=== PATIENT | female | born 1945 | race Caucasian/White ===

== ENCOUNTER 2023-12-27 15:37 | Emergency (ER) | payer MEDICARE, OTHER, SELFPAY ==
--- NOTE | ~2023-12-27 | CT_ITS ---
EXAMINATION: CT brain wo con DATE: 12/27/2023 15:56 INDICATION: Stroke. TECHNIQUE: Computed tomography (CT) of the head was performed without intravenous contrast. The mA wa s adjusted according to patient size. Iterative reconstruction technique was employed. The dose-lengt h product was 605.33 mGy-cm. COMPARISON: None FINDINGS: There are scattered areas of low attenuation in the cerebral white matter. There is chronic cystic encephalomalacia in the right parietal lobe deep white matter. There is no intracranial hemor rhage, acute infarction, or abnormal intracranial mass lesion. The ventricles are normal in size. The re are likely changes of left ocular lens replacement surgery. There is mild mucosal thickening in ri ght sphenoid sinus. The mastoid air cells are normal. There is a 14 mm mass with central calcificatio ns in the scalp on the right, could benign. IMPRESSION: 1. Chronic cystic encephalomalacia in the deep white matter in the right parietal lobe. 2. Moderate nonspecific cerebral white matter disease, which likely represents chronic small vessel i schemic disease. 3. I discussed this case with Dr. Reveles. Reviewed, dictated and finalized at location A. IMPRESSION: 1. Chronic cystic encephalomalacia in the deep white matter in the right pariet al lobe. 2. Moderate nonspecific cerebral white matter disease, which likely represents chronic small vessel ischemic disease. 3. I discussed this case with Dr. Reveles.
--- NOTE | ~2023-12-27 | CT_ITS ---
EXAMINATION: CTA brain carotid DATE: 12/27/2023 15:59 INDICATION: Right hemiparesis. TECHNIQUE: Computed tomographic angiography (CTA) of the head was performed with 100 mL Omnipaque-350 intravenous contrast. CTA of the neck was performed with intravenous contrast. Automated exposure co ntrol and iterative reconstruction technique were employed. The dose-length product was 1059.03 mGy-c m. Maximum intensity projection and volume rendered 3D-reconstructions were created by the technologi st on a separate workstation. COMPARISON: Head CT 12/27/2023 FINDINGS: HEAD CTA: There is chronic cystic encephalomalacia in the right parietal lobe deep white matter. Ther e are scattered areas of low attenuation in the cerebral white matter. There is no intracranial hemor rhage, acute infarction, or abnormal intracranial mass lesion. The ventricles are normal in size. The re is a 15 mm mass with calcifications in the scalp on the right, likely benign. There is mild mucosa l thickening in the paranasal sinuses. The mastoid air cells are normal. There are likely changes of ocular lens replacement surgeries. The vertebral arteries dominant. There is no significant stenosis of basilar artery or the posterior cerebral arteries. The posterior communicating arteries are normal . There is no significant stenosis of the intracranial internal carotid arteries or anterior cerebral arteries. Anterior communicating artery is normal. There is mild stenosis of proximal right middle c erebral artery. There is no aneurysm. There is severe stenosis of left internal carotid artery termin us and left left M1 middle cerebral artery. There is total occlusion of left M2 middle cerebral arter y. NECK CTA: There are no pathologically enlarged lymph nodes. There is no significant stenosis of the v ertebral arteries. There is plaque in the proximal internal carotid arteries. There is 0% stenosis of the proximal right internal carotid artery relative to normal distal artery lumen diameter (NASCET c riteria). There is 24% stenosis of the proximal left internal carotid artery relative to normal dista l artery lumen diameter. IMPRESSION: 1. Chronic cystic encephalomalacia in the right parietal lobe deep white matter. 2. Moderate nonspecific cerebral white matter disease, which likely represents chronic small vessel i schemic disease. 3. 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 Total occlusion of left M 2 middle cerebral artery. I called this result to Dr. Reveles. 4. 0% stenosis of the proximal right internal carotid artery relative to normal distal artery lumen d iameter (NASCET criteria). 5. 24% stenosis of the proximal left internal carotid artery relative to normal distal artery lumen d iameter. Reviewed, dictated and finalized at location A. IMPRESSION: 1. Chronic cystic encephalomalacia in the right parietal lobe deep white matter . 2. Moderate nonspecific cerebral white matter disease, which likely represents chronic small vessel ischemic disease. 3. 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 Tot al occlusion of left M2 middle cerebral artery. I called this result to Dr. Nura morales. 4. 0% stenosis of the proximal right internal carotid artery relative to normal distal artery lumen diameter (NASCET criteria). 5. 24% stenosis of the proximal left internal carotid artery relative to normal distal artery lumen diameter.
--- NOTE | 2023-12-27 15:43 | ECG_ITS ---
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 Measurements Intervals [place] Rate: 77 P: 24 DC: 234 QRS: -18 QRSD: 85 T: 43 QT: 393 QTc: 447 Interpretive Statements SINUS RHYTHM WITH FIRST DEGREE AV BLOCK VOLTAGE CRITERIA FOR LVH [MEETS CRITERIA IN ONE OF: R(aVL), S(V1), R(V5), R(V5/V6)+S(V1)] CONSIDER PREVIOUS POSSIBLE ANTERIOR MYOCARDIAL INFARCTION ABNORMAL ECG No previous ECG available for comparison Electronically Signed On 12-28-2023 07:58:42 CDT by Aamir Acevedo M.D.
--- NOTE | 2023-12-27 15:46 | ED.NEUROSD ---
HPI - Neuro Symptoms/Deficit General Chief Complaint: Suspected CVA Stated Complaint: possible CVA Time Seen by Provider: 12/27/23 15:43 History of Present Illness HPI Narrative: Patient is a 78-year-old female with history of hypertension, here with acute onset of confusion. Family states that her witnessed last known normal was around 1400. Family at bedside then noted sudden onset of confusion and word finding difficulties along with difficulty ambulating without assistance. They were unsure if she had any side weaker than the other. They did not notice facial droop. They do not believe she has had a prior stroke and they do not believe she is on blood thinners. History is somewhat limited due to the fact that patient is here visiting from [place], and has only been with current family members for the last 10 days and they are unsure of all of her medical history. Family revised last known normal to be 1200. Related Data Allergies Allergy/AdvReac Type Severity Reaction Status Date / Time No Known Allergies Allergy Unverified 03/13/13 12:27 Review of Systems Review of Systems: ROS unobtainable: Yes unobtainable due to mental status (word finding difficulties) Exam Narrative: GENERAL: Well-appearing, well-nourished, and in no acute distress. HEAD: Normocephalic, atraumatic. EYES: PERRLA and EOMI. ENT: Nares clear. Mucous membranes moist. NECK: Supple. CHEST: Clear to auscultation. No respiratory distress. HEART: Regular rate and rhythm. Normal peripheral pulses. ABDOMEN: Soft, nontender, nondistended. EXTREMITIES: Normal range of motion. No edema. SKIN: Warm, dry, no rash. NEURO: No facial droop, faint RUE drift, no lower extremity drift. Able to identify objects, difficulty with repeating sentences and phrases with fluency. No sensory deficits. Alert and oriented x2. PSYCH: Normal mood and affect. Course Course Emergency Course: Patient seen and evaluated at stroke stop. Difficulty with word finding and orientation question. To CT. LKN 1400. Patient hypertensive. Will order labetalol in anticipation of thrombolytics given she is within the TPA window. Received call from radiology, severe stenosis of left ICA and left M1. Total occlusion of left M2. Reevaluated. Patient's LKN was revised by family to 1200, patient outside of thrombolytic window at this time. Labetalol canceled to allow permissive hypertension. Repeat, more thorough neuro exam performed with patient in stretcher. NIH of 4 with a RUE drift. Family has no preference for stroke center, will discuss with [facility] stroke service. Spoke with Dr. Mckoy from [facility] stroke service. Given HTN and the fact that she is just at TPA/TKA cut off, not candidate for thrombolytics given benefits do not outweigh risks at this time per my discussion with stroke team. Family updated on all of this and is in agreement. Will do ED to ED transfer. Patient accepted as ED to ED transfer by Dr. Jones. Vital Signs Vital signs: Vital Signs Temperature 98.7 F 12/27/23 16:01 Pulse Rate 82 12/27/23 16:01 Respiratory Rate 16 12/27/23 16:01 Pulse Oximetry 100 12/27/23 16:01 Oxygen Delivery Room Air 12/27/23 16:01 Temperature 97.9 F 12/27/23 17:32 Pulse Rate 75 12/27/23 17:32 Respiratory Rate 16 12/27/23 17:32 Blood Pressure 174/106 H 12/27/23 17:32 Pulse Oximetry 98 12/27/23 17:32 Oxygen Delivery Room Air 12/27/23 16:01 MDM - Neuro Symptoms/Deficit Lab Data 12/27/23 16:01 12/27/23 16:01 Labs: Lab Results 12/27/23 12/27/23 12/27/23 Range/Units 15:43 15:54 16:01 WBC 16.0 H (4.5-10.0) K/mm3 RBC 5.07 (4.2-5.4) M/mm3 Hgb 15.5 H (12.0-15.0) g/dL Hct 46.7 (37.0-47.0) % MCV 92.1 (80-100) fl MCH 30.6 (26-34) pg MCHC 33.2 (32-36) g/dl RDW 14.0 (11.5-14.5) % Plt Count 201 (150-375) k/mm3 MPV 11.4 H (7.4-10.4) fl Immature Gran % (Auto)
[2023-12-27 15:47] LABS: Glucose Point of Care 112 mg/dl (65-105)
[2023-12-27 15:59] LABS: Estimated Glomerular Filt Rate 60
[2023-12-27 16:01] VITALS: PULSE 82; RESP 16; TEMP 37.1; O2SAT 100
[2023-12-27 16:08] VITALS: BP 185/127; PULSE 85; RESP 16; O2SAT 96
[2023-12-27 16:09] LABS: Basophils Percent Auto 0.3 % (0.2-1.2); Eosinophils Percent Auto 0.1 % (0-4.4); Hematocrit 46.7 % (37.0-47.0); Hemoglobin 15.5 g/dL (12.0-15.0); Immature Granulocyte Absolute 0.07 K/mm3 (0.00-0.031); Immature Granulocyte Percent A 0.4 % (0-0.5); Lymphocytes Absolute Auto 2.35 K/mm3 (0.9-3.2); Lymphocytes Percent Auto 14.7 % (18.3-44.2); Mean Corpuscular HGB Conc 33.2 g/dl (32-36); Mean Corpuscular Hemoglobin 30.6 pg (26-34); Mean Corpuscular Volume 92.1 fl (80-100); Mean Platelet Volume 11.4 fl (7.4-10.4); Monocytes Absolute Auto 1.1 K/mm3 (0.1-0.6); Monocytes Percent Auto 6.6 % (2.6-8.5); Neutrophils Absolute Auto 12.5 K/mm3 (1.3-6.7); Neutrophils Percent Auto 77.9 % (45.5-73.1); Platelet Count Result 201 k/mm3 (150-375); Red Blood Count 5.07 M/mm3 (4.2-5.4)
[2023-12-27 16:20] LABS: Alanine Aminotransferase 15 U/L (6-35); Albumin Level 4.4 g/dL (3.5-5.1); Alkaline Phosphatase 93 U/L (38-126); Anion Gap 6 mmol/L (4-12); Aspartate Amino Transferase 25 U/L (14-36); Bilirubin,Total 1.3 mg/dL (0.2-1.3); Blood Urea Nitrogen 22 mg/dL (7-17); Calcium 9.5 mg/dL (8.4-10.2); Carbon Dioxide 27 mmol/L (22-30); Chloride 105 mmol/L (98-107); Estimated CRCL calculation 58 ml/min; Estimated Glomerular Filt Rate > 60; Glucose 119 mg/dL (65-110); Partial Thromboplastin Time 28.2 Seconds (22.3-36.8); Potassium 3.9 mmol/L (3.4-5.0); Prothrombin Time 13.7 Seconds (11.1-14.7); Sodium 138 mmol/L (137-145)
[2023-12-27 16:31] LABS: Troponin I < 0.012 ng/mL (0.000-0.034)
[2023-12-27 16:52] VITALS: BP 165/92; PULSE 75; RESP 16; TEMP 36.6; O2SAT 97
[2023-12-27 17:32] VITALS: BP 174/106; PULSE 75; RESP 16; TEMP 36.6; O2SAT 98
== END 2023-12-27 17:34 | disposition short-term general hospital (02) ==
LOC: ANHED 16:27
PROVIDERS: Emergency Provider Student in an Organized Health Care Education/Training Program
DX: I63.512 Cerebral infarction due to unspecified occlusion or stenosis of left middle cerebral artery (principal); I10 Essential (primary) hypertension; I65.22 Occlusion and stenosis of left carotid artery; R90.82 White matter disease, unspecified; G93.89 Other specified disorders of brain
CPT/HCPCS: 36415; 70450; 70496; 70498; 80053; 82948; 84484; 85025; 85610; 85730; 93005; 99285; Q9967

== ENCOUNTER 2024-01-06 12:29 | Inpatient (IN) | payer MEDICARE, OTHER, SELFPAY ==
[2024-01-06] VITALS (7 sets, daily range): BP systolic 120–157; BP diastolic 61–74; PULSE 53–70; RESP 14–18; TEMP 36.4–36.9; O2SAT 94–98
--- NOTE | ~2024-01-06 | CT_ITS ---
EXAMINATION: CT brain wo con DATE: 01/06/2024 13:32 INDICATION: Altered mental status TECHNIQUE: Computed tomography (CT) of the head was performed without intravenous contrast. Sagittal and coronal reconstructions were performed. The mA was adjusted according to patient size. Iterative reconstruction technique was employed. The dose-length product was 681.00 mGy-cm. COMPARISON: head CT and CT angiogram dated 12/27/2023 FINDINGS: Increased prominence of the region of decreased white matter attenuation in the periventricular left frontal and parietal lobes likely representing evolution of a now subacute infarct in the left middle cerebral artery vascular distribution with total occlusion of the left M2 segment on the prior CT an giogram. Unchanged small lacunar infarct in the right parietal white matter. No acute intracranial he morrhage or abnormal extra axial fluid collection. There is additional unchanged moderate scattered w fan matter hypoattenuation consistent with chronic small vessel ischemic disease. Ventricles are no rmal and symmetric. No mass/mass effect. Changes of bilateral intraocular lens replacement. The orbit s and mastoid air cells are normal. Mild mucosal thickening the right maxillary sinus. Intracranial c alcified cerebral atherosclerosis is noted. IMPRESSION: 1. Interval evolution with decreasing attenuation of a region of likely subacute infarct in the left frontal and parietal lobes in the vascular distribution of the previous noted thrombosed left middle cerebral artery. 2. Additional unchanged moderate scattered white matter hypoattenuation consistent with chronic small vessel ischemic disease and additional chronic lacunar infarct in the right parietal white matter. Reviewed, dictated and finalized at location A. IMPRESSION: 1. Interval evolution with decreasing attenuation of a region of likely subacut e infarct in the left frontal and parietal lobes in the vascular distribution o f the previous noted thrombosed left middle cerebral artery. 2. Additional unchanged moderate scattered white matter hypoattenuation consist ent with chronic small vessel ischemic disease and additional chronic lacunar i nfarct in the right parietal white matter.
--- NOTE | ~2024-01-06 | XR_ITS ---
EXAMINATION: XR chest 1V DATE: 01/06/2024 13:34 INDICATION: Altered mental status. TECHNIQUE: A single frontal view of the chest was obtained. COMPARISON: Chest single view 03/13/2013 FINDINGS: There is mild atelectasis in left mid and lower lung zones. No pleural effusion or pneumoth orax. Cardiomegaly is noted. Surgical clips in the right upper quadrant are likely from cholecystecto my. IMPRESSION: 1. Mild atelectasis in left mid and lower lung zones. 2. Cardiomegaly. Reviewed, dictated and finalized at location E.
--- NOTE | 2024-01-06 13:08 | ECG_ITS ---
Test Date: 2024-01-06 13:38:57 Measurements Intervals [place] Rate: 54 P: 45 MS: 221 QRS: -30 QRSD: 103 T: 74 QT: 447 QTc: 425 Interpretive Statements SINUS BRADYCARDIA WITH FIRST DEGREE AV BLOCK POOR R-WAVE PROGRESSION, CONSIDER PREVIOUS ANTERIOR INFARCTION LEFT VENTRICULAR HYPERTROPHY AND ST-T CHANGE [VOLTAGE CRITERIA PLUS ST/T ABNORMALITY] ABNORMAL ECG Compared to ECG 12/27/2023 16:11:21 NO SIGNIFICANT DIFFERENCE Electronically Signed On 01-06-2024 15:33:03 CDT by Aamir Acevedo M.D.
--- NOTE | 2024-01-06 13:11 | ED.AMS ---
HPI - Altered Mental Status General Chief Complaint: Altered Mental Status Stated Complaint: ams Time Seen by Provider: 01/06/24 13:02 Source: family (daughter), EMS, RN notes reviewed and old records reviewed Mode of arrival: EMS Limitations: physical limitation (aphasia) and clinical condition History of Present Illness HPI narrative: This is a 78 year old female who presents from [facility] s/p left MCA ischemic CVA with residual right hemiparesis and aphasia for evaluation of altered mental status. Her daughter is at bedside and she states patient has been doing well during PT/OT. She states today patient was wanting to get to bed but staff requested for her stay up until lunch. Her daughter states she was sitting in her wheelchair when she became diaphoretic and stopped responding to her. She is still able to follow commands. She states she does not think patient loss consciousness. She had her stroke 10 days ago and she has been admitted to rehab for days. Related Data Home Medications Medication Instructions Recorded Confirmed apixaban 5 mg tablet 5 mg PO BID 01/02/24 01/06/24 aspirin 81 mg chewable tablet 81 mg PO DAILY 01/02/24 01/06/24 carvedilol 25 mg tablet 25 mg PO BID 01/02/24 01/06/24 hydrochlorothiazide 25 mg tablet 25 mg PO DAILY 01/02/24 01/06/24 levothyroxine 200 mcg tablet 200 mcg PO DAILY 01/02/24 01/06/24 rosuvastatin 20 mg tablet 20 mg PO DAILY 01/02/24 01/06/24 vitamin A 3,000 mcg (10,000 unit) 3,000 mcg PO DAILY 01/02/24 01/06/24 capsule amlodipine 10 mg PO DAILY 01/06/24 01/06/24 Allergies Allergy/AdvReac Type Severity Reaction Status Date / Time azithromycin AdvReac Nausea and Verified 01/06/24 17:10 Vomiting codeine AdvReac Nausea and Verified 01/06/24 17:10 Vomiting erythromycin base AdvReac Nausea and Verified 01/06/24 17:10 Vomiting Review of Systems Review of Systems: ROS unobtainable: Yes unobtainable due to medical condition PMFSH Past Medical History Medical History (Updated 01/06/24 @ 22:37 by Hue Hurtado MD) Acute ischemic left MCA stroke Aphasia as late effect of stroke DVT of lower extremity (deep venous thrombosis) Hemiparesis affecting right side as late effect of stroke HTN (hypertension) Hyperlipidemia Hypothyroidism Postablative hypothyroid Obstructive sleep apnea Vision disturbance following CVA (cerebrovascular accident) Social History Social History (Updated 01/06/24 @ 21:50 by Tanvi Obrien DO) Social History: The patient lives with her daughter in his [place] until recent visit to family members in the [place] She has lived in a simple for 2 years. She has 2 biologic daughters and 1 biologic son and multiple step children. Prior to her stroke she occasionally ambulated with a cane. She was otherwise independent activities of daily living. She smoked 1 pack of cigarettes per day from the time she was a teenager until approximately 30 years ago. She usually drink a glass of wine a night. She denies history of illicit substance use. Healthcare power of city attorney: Tanvi Medina (daughter) for Aamir Dubon Code status: Full code Smoking packs per day: 1 Smoking cigarettes per day: 20.0 Years smoked: 30 Smoking pack-years: 30.00 Smoking status: Former smoker Alcohol intake: current Drinks per week: 7 Alcohol use details: A glass of wine a night Substance use: never Substance use type: does not use Do You Feel Safe in your Home?: Yes Lack of Transportation: No Lack of Food: Never True Current Housing: I Have Housing Concerned About Future Housing: No Difficulty Paying Gas/Electric Bills: No Difficulty Paying for Meds: No Currently Unemployed: No Education: Don't Know Difficulty w/ Childcare or Family Care: No Occupation/Education: retired 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
[2024-01-06 14:14] LABS: Basophils Absolute Auto 0.1 K/mm3 (0.0-0.1); Basophils Percent Auto 0.4 % (0.2-1.2); Eosinophils Absolute Auto 0.1 K/mm3 (0-0.3); Eosinophils Percent Auto 0.3 % (0-4.4); Hemoglobin 16.8 g/dL (12.0-15.0); Immature Granulocyte Absolute 0.08 K/mm3 (0.00-0.031); Immature Granulocyte Percent A 0.5 % (0-0.5); Lymphocytes Absolute Auto 2.46 K/mm3 (0.9-3.2); Lymphocytes Percent Auto 15.1 % (18.3-44.2); Mean Corpuscular HGB Conc 33.6 g/dl (32-36); Mean Corpuscular Hemoglobin 30.6 pg (26-34); Mean Corpuscular Volume 91.1 fl (80-100); Mean Platelet Volume 12.2 fl (7.4-10.4); Monocytes Percent Auto 6.3 % (2.6-8.5); Neutrophils Absolute Auto 12.6 K/mm3 (1.3-6.7); Neutrophils Percent Auto 77.4 % (45.5-73.1); Platelet Count Result 312 k/mm3 (150-375); Red Blood Count 5.49 M/mm3 (4.2-5.4); Red Cell Distribution Width 12.8 % (11.5-14.5); White Blood Count 16.3 K/mm3 (4.5-10.0)
[2024-01-06 14:18] LABS: Appearance Urine Cloudy (Clear); Bacteria Urine 4+ /hpf; Bilirubin Urine Negative (Negative); Blood Urine Trace (Negative); Color Urine Dark Yellow (Yellow); Glucose Urine UA Negative (Negative); Ketones Urine Negative (Negative); Leukocyte Esterase Ur 1+ LEU/UL (Negative); Nitrate Urine Negative (Negative); Non Pathogenic Casts 0-2; Protein Urine Trace mg/dL (Negative); RBC Urine 0-2 /hpf (0-2); Squamous Epithelial Cell Urine None Seen /hpf (Few); pH Urine 5.5 (5.0-9.0)
[2024-01-06 14:28] LABS: INR 1.7; Prothrombin Time 20.8 Seconds (11.1-14.7)
[2024-01-06 14:29] LABS: Add Urine Microscopic? YES
[2024-01-06 14:30] LABS: Alanine Aminotransferase 26 U/L (6-35); Albumin Level 4.4 g/dL (3.5-5.1); Alkaline Phosphatase 99 U/L (38-126); Anion Gap 9 mmol/L (4-12); Aspartate Amino Transferase 31 U/L (14-36); Bilirubin,Total 0.8 mg/dL (0.2-1.3); Blood Urea Nitrogen 37 mg/dL (7-17); Calcium 9.8 mg/dL (8.4-10.2); Carbon Dioxide 31 mmol/L (22-30); Chloride 100 mmol/L (98-107); Estimated CRCL calculation 54 ml/min; Estimated Glomerular Filt Rate 60; Glucose 144 mg/dL (65-110); Potassium 2.7 mmol/L (3.4-5.0); Sodium 140 mmol/L (137-145)
[2024-01-06 14:34] LABS: Troponin I < 0.012 ng/mL (0.000-0.034)
[2024-01-06 14:58] LABS: Magnesium 2.1 mg/dL (1.6-2.3)
[2024-01-06] MEDS: POTASSIUM CHLORIDE INJ 40 MEQ in SODIUM CHLORIDE 0.9% IV 500 ML 130 MEQ IVPB (14:58)
--- NOTE | 2024-01-06 17:10 | ADMGEN ---
This patient, Carol Rosa, was admitted to 3 Med Surg Room 331-01. Patient/family oriented to hospital policies and general routines including ID bracelet, bed and alarms, visiting hours, pain management, procedures, bathroom and other care routines, personal items, smoking policy, room service/diet, and visiting hours. Information on how to activate the Rapid Response Team has been discussed. Patient/Family are encouraged to report perceived risks to care and to ask questions if they do not understand what they are told or what they should do.
--- NOTE | 2024-01-06 21:36 | PM.IMHP ---
H&P: HPI History of Present Illness Date/Time: 01/06/24 21:36 Chief Complaint: Drop in blood pressure, diaphoretic Narrative: 78-year-old female with a past medical history of obesity, obstructive sleep apnea, essential hypertension (historically uncontrolled), postablative hypothyroidism, hyperlipidemia and recent CVA who presented to from [facility] via EMS due to episode of drop in blood pressure diaphoresis and acute altered mental status. The patient's daughter who was at bedside provides majority of history is the patient is almost completely aphasic following her stroke. The patient was living in [facility] with her daughter for the last 2 years but recently came to the [place] visit her other children. While here she had an acute CVA and was brought to [facility] on 12/27/2023 for acute CVA with CTA chronic cystic encephalomalacia of the right parietal lobe (no known prior CVA history) demonstrate severe stenosis of the left internal carotid and left M1 with total occlusion left M2. The patient was outside the thrombolytic window. The patient was transferred to [facility] where MRI demonstrated low volume right watershed infarcts. She was started on Eliquis and had a KATHY but results are not available for review. The patient at was discharged to acute rehab on 01/01/2024. She has been placed on a minimally thin liquid and pureed diet level 4. The patient had done well with both physical therapy and speech therapy today. She told staff that she did not feel well and wanted to lie down. They asked her to stay up in her wheelchair tell after lunch. Than a couple of minutes later patient acutely became diaphoretic and viera in color. Her daughter reports that she was sweating so bad that it was dripping off of her ear lobes. She was not responding. The daughter reports that her blood pressure dropped from her usual of 150s to 160s down to 90 systolic. They laid the patient down and then on repeat evaluation she was back to her baseline. Patient did not actually lose consciousness. Through wrist areas of yes and no questions patient answered with head nods and occasional yes or no responses. The patient stated she denies any chest pain palpitations difficulty breathing, nausea or vomiting. Both the patient and her daughter do not know when her last bowel movement was until today. After she had arrived to the medical floor she did have a small amount of stool. She denies any abdominal pain. She has persistent hemiplegia of the right upper extremity but improved movement from the hip and thigh of the right lower extremity but still has problems with foot drop. The patient's daughter reports the patient has frequent urinary tract infections patient denies any dysuria or changes in urinary frequency. The patient's daughter reports the patient's urine is been quite dark in color and she is concerned her mother may be dehydrated. Patient does have a pure wick catheter in place. Labs in the ER did demonstrate leukocytosis, polycythemia increased from baseline, significant hypokalemia and UA with 4+ bacteria 6-10 wbc's and 1+ esterase with cloudy appearance to the urine. The patient has been afebrile since presentation. CT of the brain demonstrated interval evolution with decreasing continuation of region likely subacute infarct left frontal and parietal lobes in the vascular distribution of the left middle cerebral artery. Additional unchanged moderate scattered white matter hypoattenuation consistent with chronic small-vessel ischemic disease an additional chronic lacunar infarct in the right parietal white matter. Chest x-ray demonstrated mild atelectasis of the left mid and lower lung zones as well as cardiomegaly. In the ER the patient received 40 mEq of IV potassium and was admitted for observation. Review of Systems Review of Systems: Review of systems limited due to expressive aphasia from recent stroke. [facility] Past Medical His
[2024-01-06] MEDS: KCL 20 MEQ/0.45% NS 1,000 ML 125 ML IV CONT (22:44)
[2024-01-06] MEDS: carvediloL 25 MG TABLET PO (23:15)
[2024-01-07] VITALS (11 sets, daily range): BP systolic 140–144; BP diastolic 75–78; PULSE 55–84; RESP 18; TEMP 36.8–37; O2SAT 95–98
[2024-01-07] MEDS: LEVOTHYROXINE SODIUM 100 MCG TABLET 200 MCG PO (05:04)
[2024-01-07 06:31] LABS: Basophils Absolute Auto 0.1 K/mm3 (0.0-0.1); Basophils Percent Auto 0.3 % (0.2-1.2); Eosinophils Absolute Auto 0.1 K/mm3 (0-0.3); Eosinophils Percent Auto 0.3 % (0-4.4); Hematocrit 46.3 % (37.0-47.0); Hemoglobin 15.2 g/dL (12.0-15.0); Immature Granulocyte Absolute 0.07 K/mm3 (0.00-0.031); Immature Granulocyte Percent A 0.4 % (0-0.5); Lymphocytes Absolute Auto 3.46 K/mm3 (0.9-3.2); Lymphocytes Percent Auto 19.1 % (18.3-44.2); Mean Corpuscular HGB Conc 32.8 g/dl (32-36); Mean Corpuscular Hemoglobin 30.2 pg (26-34); Mean Corpuscular Volume 91.9 fl (80-100); Mean Platelet Volume 11.7 fl (7.4-10.4); Monocytes Absolute Auto 1.2 K/mm3 (0.1-0.6); Monocytes Percent Auto 6.6 % (2.6-8.5); Neutrophils Absolute Auto 13.3 K/mm3 (1.3-6.7); Neutrophils Percent Auto 73.3 % (45.5-73.1); Platelet Count Result 304 k/mm3 (150-375); Red Blood Count 5.04 M/mm3 (4.2-5.4); White Blood Count 18.1 K/mm3 (4.5-10.0)
[2024-01-07 06:44] LABS: Alanine Aminotransferase 21 U/L (6-35); Albumin Level 3.9 g/dL (3.5-5.1); Alkaline Phosphatase 91 U/L (38-126); Anion Gap 9 mmol/L (4-12); Aspartate Amino Transferase 27 U/L (14-36); Bilirubin,Total 0.9 mg/dL (0.2-1.3); Blood Urea Nitrogen 32 mg/dL (7-17); Calcium 8.8 mg/dL (8.4-10.2); Carbon Dioxide 24 mmol/L (22-30); Chloride 105 mmol/L (98-107); Estimated CRCL calculation 68 ml/min; Estimated Glomerular Filt Rate > 60; Glucose 118 mg/dL (65-110); Potassium 3.4 mmol/L (3.4-5.0); Sodium 138 mmol/L (137-145)
[2024-01-07] MEDS: KCL 20 MEQ/0.45% NS 1,000 ML 125 ML IV CONT ×2 (07:01→17:06)
--- NOTE | 2024-01-07 09:14 | PM.IMPN ---
Progress Note: A&P Assessment and Plan (1) Acute hypokalemia: Code(s): E87.6 - Hypokalemia Status: Acute Assessment and Plan: Potassium 2.7 on admission -K+ 3.4, magnesium 2.0 today -Give PO K+ 40 meq once today -On tele (2) Vasovagal near syncope: Code(s): R55 - Syncope and collapse Status: Acute Assessment and Plan: Orthostatic vital signs to be collected when patient works with therapy Received 1.5 L of fluids---IVF ordered to stop this afternoon (3) Leukocytosis: Code(s): D72.829 - Elevated white blood cell count, unspecified Status: Acute Assessment and Plan: Appears she had elevated white count at [facility] which was thought to be reactive -white count is increased after IV fluid hydration -u/a shows cloudy urine +1 leuks, wbc 6-10, +4 bacteria -will go ahead and treat with Rocephin pending culture results. (4) DVT of lower extremity (deep venous thrombosis): Qualifiers: Affected thrombotic vein of extremity: unspecified vein of extremity Chronicity: unspecified Laterality: unspecified laterality Qualified Code(s): I82.409 - Acute embolism and thrombosis of unspecified deep veins of unspecified lower extremity Code(s): I82.409 - Acute embolism and thrombosis of unspecified deep veins of unspecified lower extremity Status: Acute Assessment and Plan: Recent DVT found on admission to [facility] -on Eliquis (5) Hemiparesis affecting right side as late effect of stroke: Code(s): I69.351 - Hemiplegia and hemiparesis following cerebral infarction affecting right dominant side Status: Acute Assessment and Plan: Recent stroke with residual right hemiparesis and expressive aphasia. On ASA 81 mg, Crestor 20 mg and Eliquis 5 mg PT/OT consults placed ST consulted Anticipate return to [facility] (6) HTN (hypertension): Qualifiers: Hypertension type: primary hypertension Qualified Code(s): I10 - Essential (primary) hypertension Code(s): I10 - Essential (primary) hypertension Status: Acute Assessment and Plan: Blood pressure was reported to be low at [facility] but no low blood pressure documented. Blood pressures seem to range systolic 140-160's. She is on amlodipine 10 mg daily, HCTZ, Coreg normally Continue with amlodipine and Coreg. Holding HCTZ currently. (7) Hypothyroidism: Qualifiers: Hypothyroidism type: postablative Qualified Code(s): E89.0 - Postprocedural hypothyroidism Code(s): E03.9 - Hypothyroidism, unspecified Status: Acute Assessment and Plan: Continue levothyroxine Subjective Date/time seen: 01/07/24 09:14 Interval history: 78-year-old female with a past medical history of obesity, obstructive sleep apnea, essential hypertension (historically uncontrolled), postablative hypothyroidism, hyperlipidemia and recent CVA who presented to [facility] acute [facility] via EMS due to episode of drop in blood pressure diaphoresis and acute altered mental status. Patient had a stroke 10 days ago and was transferred to [facility]. The daughter is unsure of what interventions were done at [facility]--records are supposed to be requested. The patient has considerable expressive aphasia but can answer with yes and no and nods her head appropriately. She has a flaccid right arm and some movement of her right leg. 01/06: Patient is seen resting in bed with her daughter at the bedside. She is drowsy but her daughter states that she just had lunch. The patient is doing better than when she first came to the hospital. I discussed current plan of care with treatment for UTI and awaiting urine. It does not appear that blood cultures were drawn on admission. The daughter is asking if we can stop thickening her liquids because they were not thickening them at the [facility]. Review of Systems Review of Systems: Review of systems limited due to expressive aphasia from recent stroke. E
[2024-01-07] MEDS: carvediloL 25 MG TABLET PO ×2 (09:39→20:22)
[2024-01-07] MEDS: cefTRIAXone 2 GM/NS 100 ML 2 GM/100 ML BAG IVPB (09:39)
[2024-01-07] MEDS: amLODIPine BESYLATE 5 MG TABLET 10 MG PO (09:40)
[2024-01-07] MEDS: ASPIRIN 81 MG CHEWABLE TABLET PO (09:40)
[2024-01-07] MEDS: APIXABAN 5 MG TABLET PO ×2 (09:40→20:22)
[2024-01-07] MEDS: ROSUVASTATIN 20 MG TABLET PO (09:40)
--- NOTE | 2024-01-07 14:38 | PC.NURSE ---
Addendum entered by Lady Cabrales RN 01/07/24 14:41: Family signed the request for medical records at 1305. Original Note: Patient resting in bed with family present during morning assessment. Patient calm and cooperative. She communicates mainly with nods but was able to articulate several words during medication administration. Per family, patient states her R upper arm has begun hurting recently. Patient took pills crushed in applesauce with no difficulties. Patient is not a fan of thickened liquids.
[2024-01-07] MEDS: POTASSIUM CHLORIDE 20 MEQ PACKET (FOR LIQUID) 40 MEQ PO (17:05)
[2024-01-07] MEDS: DOCUSATE SODIUM 100 MG CAPSULE PO (20:22)
[2024-01-08] VITALS (11 sets, daily range): BP systolic 126–169; BP diastolic 51–77; PULSE 54–65; RESP 16–20; TEMP 36.3–36.7; O2SAT 97–99; BMI 10.0
[2024-01-08 00:54] LABS: IFOB Positive Control Positive; Immunochemical Fecal Occult Bl Positive (N)
[2024-01-08] MEDS: LEVOTHYROXINE SODIUM 100 MCG TABLET 200 MCG PO (05:27)
[2024-01-08 06:22] LABS: Basophils Absolute Auto 0.1 K/mm3 (0.0-0.1); Basophils Percent Auto 0.3 % (0.2-1.2); Eosinophils Absolute Auto 0.1 K/mm3 (0-0.3); Eosinophils Percent Auto 0.4 % (0-4.4); Hematocrit 43.9 % (37.0-47.0); Hemoglobin 14.4 g/dL (12.0-15.0); Immature Granulocyte Percent A 0.6 % (0-0.5); Lymphocytes Absolute Auto 3.55 K/mm3 (0.9-3.2); Lymphocytes Percent Auto 19.9 % (18.3-44.2); Mean Corpuscular HGB Conc 32.8 g/dl (32-36); Mean Corpuscular Volume 91.5 fl (80-100); Mean Platelet Volume 11.5 fl (7.4-10.4); Monocytes Percent Auto 5.5 % (2.6-8.5); Neutrophils Absolute Auto 13.1 K/mm3 (1.3-6.7); Neutrophils Percent Auto 73.3 % (45.5-73.1); Platelet Count Result 285 k/mm3 (150-375); Red Cell Distribution Width 12.9 % (11.5-14.5); White Blood Count 17.9 K/mm3 (4.5-10.0)
[2024-01-08 06:36] LABS: Alanine Aminotransferase 22 U/L (6-35); Albumin Level 3.6 g/dL (3.5-5.1); Alkaline Phosphatase 89 U/L (38-126); Anion Gap 6 mmol/L (4-12); Aspartate Amino Transferase 35 U/L (14-36); Bilirubin,Total 0.8 mg/dL (0.2-1.3); Blood Urea Nitrogen 23 mg/dL (7-17); Calcium 8.7 mg/dL (8.4-10.2); Carbon Dioxide 24 mmol/L (22-30); Chloride 107 mmol/L (98-107); Estimated CRCL calculation 68 ml/min; Estimated Glomerular Filt Rate > 60; Glucose 107 mg/dL (65-110); Potassium 3.9 mmol/L (3.4-5.0); Sodium 137 mmol/L (137-145)
[2024-01-08] MEDS: KCL 20 MEQ/0.45% NS 1,000 ML 125 ML IV CONT ×2 (06:46→16:15)
[2024-01-08] MEDS: cefTRIAXone 2 GM/NS 100 ML 2 GM/100 ML BAG IVPB (08:15)
[2024-01-08] MEDS: amLODIPine BESYLATE 5 MG TABLET 10 MG PO (08:15)
[2024-01-08] MEDS: ASPIRIN 81 MG CHEWABLE TABLET PO (08:15)
[2024-01-08] MEDS: DOCUSATE SODIUM 100 MG CAPSULE PO ×2 (08:15→20:48)
[2024-01-08] MEDS: ROSUVASTATIN 20 MG TABLET PO (08:15)
[2024-01-08] MEDS: APIXABAN 5 MG TABLET PO ×2 (08:16→20:48)
[2024-01-08] MEDS: carvediloL 25 MG TABLET PO ×2 (08:16→20:47)
--- NOTE | 2024-01-08 08:57 | PM.IMPN ---
Progress Note: A&P Assessment and Plan (1) Acute hypokalemia: Code(s): E87.6 - Hypokalemia Status: Acute Assessment and Plan: Potassium 2.7 on admission -K+ 3.4, magnesium 2.0 today -Give PO K+ 40 meq once today -On tele 01/07- K 3.0 today- monitor (2) Vasovagal near syncope: Code(s): R55 - Syncope and collapse Status: Acute Assessment and Plan: Orthostatic vital signs to be collected when patient works with therapy Received 1.5 L of fluids---IVF ordered to stop this afternoon (3) Leukocytosis: Code(s): D72.829 - Elevated white blood cell count, unspecified Status: Acute Assessment and Plan: Appears she had elevated white count at [facility] which was thought to be reactive -white count is increased after IV fluid hydration -u/a shows cloudy urine +1 leuks, wbc 6-10, +4 bacteria -will go ahead and treat with Rocephin pending culture results. 01/07- 17.9 today (18.1) (4) DVT of lower extremity (deep venous thrombosis): Qualifiers: Affected thrombotic vein of extremity: unspecified vein of extremity Chronicity: unspecified Laterality: unspecified laterality Qualified Code(s): I82.409 - Acute embolism and thrombosis of unspecified deep veins of unspecified lower extremity Code(s): I82.409 - Acute embolism and thrombosis of unspecified deep veins of unspecified lower extremity Status: Acute Assessment and Plan: Recent DVT found on admission to [facility] -on Eliquis -continue (5) Hemiparesis affecting right side as late effect of stroke: Code(s): I69.351 - Hemiplegia and hemiparesis following cerebral infarction affecting right dominant side Status: Acute Assessment and Plan: Recent stroke with residual right hemiparesis and expressive aphasia. On ASA 81 mg, Crestor 20 mg and Eliquis 5 mg PT/OT consults placed ST consulted Anticipate return to [facility] (6) HTN (hypertension): Qualifiers: Hypertension type: primary hypertension Qualified Code(s): I10 - Essential (primary) hypertension Code(s): I10 - Essential (primary) hypertension Status: Acute Assessment and Plan: Blood pressure was reported to be low at [facility] but no low blood pressure documented. Blood pressures seem to range systolic 140-160's. She is on amlodipine 10 mg daily, HCTZ, Coreg normally Continue with amlodipine and Coreg. Holding HCTZ currently. (7) Hypothyroidism: Qualifiers: Hypothyroidism type: postablative Qualified Code(s): E89.0 - Postprocedural hypothyroidism Code(s): E03.9 - Hypothyroidism, unspecified Status: Acute Assessment and Plan: Continue levothyroxine (8) UTI (urinary tract infection): Code(s): N39.0 - Urinary tract infection, site not specified Status: Acute Assessment and Plan: - on ceftriaxone IV-started on 01/06 - culture is growing E coli-sensitivities pending- will continue IV antibiotics for now Time Spent With Patient Time with patient: 25 - 35 minutes Subjective Date/time seen: 01/08/24 08:57 Interval history: 78-year-old female with a past medical history of obesity, obstructive sleep apnea, essential hypertension (historically uncontrolled), postablative hypothyroidism, hyperlipidemia and recent CVA who presented to [facility] acute [facility] via EMS due to episode of drop in blood pressure diaphoresis and acute altered mental status. Patient had a stroke 10 days ago and was transferred to [facility]. The daughter is unsure of what interventions were done at [facility]--records are supposed to be requested. The patient has considerable expressive aphasia but can answer with yes and no and nods her head appropriately. She has a flaccid right arm and some movement of her right leg. 01/06: Patient is seen resting in bed with her daughter at the bedside. She is drowsy but her daughter states that she just had lunch. The patient is doing better than when she
--- NOTE | 2024-01-08 15:01 | PCSTNOTE ---
Please refer to the Bedside Swallow Evaluation in the EMR. Please note, silent aspiration cannot be ruled out at bedside.
[2024-01-09] VITALS (13 sets, daily range): BP systolic 129–148; BP diastolic 55–77; PULSE 56–84; RESP 14–20; TEMP 35.8–37.4; O2SAT 95–100; BMI 10.0
[2024-01-09] MEDS: KCL 20 MEQ/0.45% NS 1,000 ML 125 ML IV CONT (00:50)
[2024-01-09] MEDS: LEVOTHYROXINE SODIUM 100 MCG TABLET 200 MCG PO (06:08)
[2024-01-09 07:15] LABS: Basophils Absolute Auto 0.1 K/mm3 (0.0-0.1); Basophils Percent Auto 0.4 % (0.2-1.2); Eosinophils Absolute Auto 0.2 K/mm3 (0-0.3); Eosinophils Percent Auto 1.8 % (0-4.4); Hematocrit 40.2 % (37.0-47.0); Hemoglobin 13.3 g/dL (12.0-15.0); Immature Granulocyte Absolute 0.05 K/mm3 (0.00-0.031); Immature Granulocyte Percent A 0.4 % (0-0.5); Lymphocytes Absolute Auto 3.22 K/mm3 (0.9-3.2); Lymphocytes Percent Auto 27.4 % (18.3-44.2); Mean Corpuscular HGB Conc 33.1 g/dl (32-36); Mean Corpuscular Hemoglobin 30.6 pg (26-34); Mean Corpuscular Volume 92.6 fl (80-100); Monocytes Absolute Auto 0.8 K/mm3 (0.1-0.6); Monocytes Percent Auto 6.7 % (2.6-8.5); Neutrophils Absolute Auto 7.5 K/mm3 (1.3-6.7); Neutrophils Percent Auto 63.3 % (45.5-73.1); Platelet Count Result 241 k/mm3 (150-375); Red Blood Count 4.34 M/mm3 (4.2-5.4); Red Cell Distribution Width 13.1 % (11.5-14.5); White Blood Count 11.8 K/mm3 (4.5-10.0)
[2024-01-09 07:28] LABS: Alanine Aminotransferase 20 U/L (6-35); Albumin Level 3.4 g/dL (3.5-5.1); Alkaline Phosphatase 81 U/L (38-126); Anion Gap 7 mmol/L (4-12); Aspartate Amino Transferase 31 U/L (14-36); Bilirubin,Total 0.7 mg/dL (0.2-1.3); Blood Urea Nitrogen 18 mg/dL (7-17); Calcium 8.4 mg/dL (8.4-10.2); Carbon Dioxide 23 mmol/L (22-30); Chloride 108 mmol/L (98-107); Estimated CRCL calculation 60 ml/min; Estimated Glomerular Filt Rate > 60; Glucose 78 mg/dL (65-110); Potassium 3.7 mmol/L (3.4-5.0); Sodium 138 mmol/L (137-145)
--- NOTE | 2024-01-09 08:02 | PM.IMPN ---
Progress Note: A&P Assessment and Plan (1) Acute hypokalemia: Code(s): E87.6 - Hypokalemia Status: Acute Assessment and Plan: Potassium 2.7 on admission -K+ 3.4, magnesium 2.0 today -Give PO K+ 40 meq once today -On tele 01/07- K 3.0 today- monitor (2) Vasovagal near syncope: Code(s): R55 - Syncope and collapse Status: Acute Assessment and Plan: Orthostatic vital signs to be collected when patient works with therapy Received 1.5 L of fluids---IVF ordered to stop this afternoon (3) Leukocytosis: Code(s): D72.829 - Elevated white blood cell count, unspecified Status: Acute Assessment and Plan: Appears she had elevated white count at [facility] which was thought to be reactive -white count is increased after IV fluid hydration -u/a shows cloudy urine +1 leuks, wbc 6-10, +4 bacteria -will go ahead and treat with Rocephin pending culture results. 01/07- 17.9 today (18.1) (4) DVT of lower extremity (deep venous thrombosis): Qualifiers: Affected thrombotic vein of extremity: unspecified vein of extremity Chronicity: unspecified Laterality: unspecified laterality Qualified Code(s): I82.409 - Acute embolism and thrombosis of unspecified deep veins of unspecified lower extremity Code(s): I82.409 - Acute embolism and thrombosis of unspecified deep veins of unspecified lower extremity Status: Acute Assessment and Plan: Recent DVT found on admission to [facility] -on Eliquis -continue (5) Hemiparesis affecting right side as late effect of stroke: Code(s): I69.351 - Hemiplegia and hemiparesis following cerebral infarction affecting right dominant side Status: Acute Assessment and Plan: Recent stroke with residual right hemiparesis and expressive aphasia. On ASA 81 mg, Crestor 20 mg and Eliquis 5 mg PT/OT consults placed ST consulted Anticipate return to [facility] (6) HTN (hypertension): Qualifiers: Hypertension type: primary hypertension Qualified Code(s): I10 - Essential (primary) hypertension Code(s): I10 - Essential (primary) hypertension Status: Acute Assessment and Plan: Blood pressure was reported to be low at [facility] but no low blood pressure documented. Blood pressures seem to range systolic 140-160's. She is on amlodipine 10 mg daily, HCTZ, Coreg normally Continue with amlodipine and Coreg. Holding HCTZ currently. (7) Hypothyroidism: Qualifiers: Hypothyroidism type: postablative Qualified Code(s): E89.0 - Postprocedural hypothyroidism Code(s): E03.9 - Hypothyroidism, unspecified Status: Acute Assessment and Plan: Continue levothyroxine (8) UTI (urinary tract infection): Code(s): N39.0 - Urinary tract infection, site not specified Status: Acute Assessment and Plan: - on ceftriaxone IV-started on 01/06 - culture is growing E coli-sensitivities pending- will continue IV antibiotics for now Time Spent With Patient Time with patient: 25 - 35 minutes Subjective Date/time seen: 01/09/24 08:02 Interval history: 78-year-old female with a past medical history of obesity, obstructive sleep apnea, essential hypertension (historically uncontrolled), postablative hypothyroidism, hyperlipidemia and recent CVA who presented to [facility] acute [facility] via EMS due to episode of drop in blood pressure diaphoresis and acute altered mental status. Patient had a stroke 10 days ago and was transferred to [facility]. The daughter is unsure of what interventions were done at [facility]--records are supposed to be requested. The patient has considerable expressive aphasia but can answer with yes and no and nods her head appropriately. She has a flaccid right arm and some movement of her right leg. 01/06: Patient is seen resting in bed with her daughter at the bedside. She is drowsy but her daughter states that she just had lunch. The patient is doing better than when she
[2024-01-09] MEDS: APIXABAN 5 MG TABLET PO ×2 (08:50→20:26)
[2024-01-09] MEDS: DOCUSATE SODIUM 100 MG CAPSULE PO (08:50)
[2024-01-09] MEDS: carvediloL 25 MG TABLET PO ×2 (08:50→20:25)
[2024-01-09] MEDS: amLODIPine BESYLATE 5 MG TABLET 10 MG PO (08:50)
[2024-01-09] MEDS: ASPIRIN 81 MG CHEWABLE TABLET PO (08:50)
[2024-01-09] MEDS: cefTRIAXone 2 GM/NS 100 ML 2 GM/100 ML BAG IVPB (08:50)
[2024-01-09] MEDS: ROSUVASTATIN 20 MG TABLET PO (08:50)
--- NOTE | 2024-01-09 10:41 | ECG_ITS ---
Test Date: 2024-01-09 11:05:27 Measurements Intervals [place] Rate: 55 P: 23 [place]: 232 QRS: -22 QRSD: 88 T: 30 QT: 463 QTc: 444 Interpretive Statements SINUS BRADYCARDIA WITH SINUS ARRHYTHMIA WITH FIRST DEGREE AV BLOCK VOLTAGE CRITERIA FOR LVH [MEETS CRITERIA IN ONE OF: R(aVL), S(V1), R(V5), R(V5/V6)+S(V1)] POSSIBLE ANTERIOR MYOCARDIAL INFARCTION , OF INDETERMINATE AGE [30 ms Q WAVE IN V3/V4, OR R < 0.2 mV IN V4] INFERIOR MYOCARDIAL INFARCTION , OF INDETERMINATE AGE [40+ ms Q WAVE AND/OR ST/T ABNORMALITY IN II/aVF] ABNORMAL ECG Compared to ECG 01/06/2024 13:38:57 ST (T wave) deviation no longer present Myocardial infarct finding still present Electronically Signed On 01-09-2024 15:58:13 CDT by Dillan Griffith M.D.
--- NOTE | 2024-01-09 11:55 | PM.DS ---
DS: Admitting Diagnosis Discharge Date 01/08 Admitting Diagnosis stroke DS: Discharge Diagnosis Discharge Diagnosis (1) Acute hypokalemia: Code(s): E87.6 - Hypokalemia Status: Acute Assessment and Plan: Potassium 2.7 on admission -K+ 3.4, magnesium 2.0 today -Give PO K+ 40 meq once today -On tele 01/07- K 3.0 today- monitor (2) Vasovagal near syncope: Code(s): R55 - Syncope and collapse Status: Acute Assessment and Plan: Orthostatic vital signs to be collected when patient works with therapy Received 1.5 L of fluids---IVF ordered to stop this afternoon (3) Leukocytosis: Code(s): D72.829 - Elevated white blood cell count, unspecified Status: Acute Assessment and Plan: Appears she had elevated white count at [facility] which was thought to be reactive -white count is increased after IV fluid hydration -u/a shows cloudy urine +1 leuks, wbc 6-10, +4 bacteria -will go ahead and treat with Rocephin pending culture results. 01/07- 17.9 today (18.1) (4) DVT of lower extremity (deep venous thrombosis): Qualifiers: Affected thrombotic vein of extremity: unspecified vein of extremity Chronicity: unspecified Laterality: unspecified laterality Qualified Code(s): I82.409 - Acute embolism and thrombosis of unspecified deep veins of unspecified lower extremity Code(s): I82.409 - Acute embolism and thrombosis of unspecified deep veins of unspecified lower extremity Status: Acute Assessment and Plan: Recent DVT found on admission to [facility] -on Eliquis -continue (5) Hemiparesis affecting right side as late effect of stroke: Code(s): I69.351 - Hemiplegia and hemiparesis following cerebral infarction affecting right dominant side Status: Acute Assessment and Plan: Recent stroke with residual right hemiparesis and expressive aphasia. On ASA 81 mg, Crestor 20 mg and Eliquis 5 mg PT/OT consults placed ST consulted Anticipate return to [facility] (6) HTN (hypertension): Qualifiers: Hypertension type: primary hypertension Qualified Code(s): I10 - Essential (primary) hypertension Code(s): I10 - Essential (primary) hypertension Status: Acute Assessment and Plan: Blood pressure was reported to be low at [facility] but no low blood pressure documented. Blood pressures seem to range systolic 140-160's. She is on amlodipine 10 mg daily, HCTZ, Coreg normally Continue with amlodipine and Coreg. Holding HCTZ currently. (7) Hypothyroidism: Qualifiers: Hypothyroidism type: postablative Qualified Code(s): E89.0 - Postprocedural hypothyroidism Code(s): E03.9 - Hypothyroidism, unspecified Status: Acute Assessment and Plan: Continue levothyroxine (8) UTI (urinary tract infection): Code(s): N39.0 - Urinary tract infection, site not specified Status: Acute Assessment and Plan: - on ceftriaxone IV-started on 01/06 - culture is growing E coli-sensitivities pending- will continue IV antibiotics for now DS: Summary Hospital Course Hospital Course: 78-year-old female with a past medical history of obesity, obstructive sleep apnea, essential hypertension (historically uncontrolled), postablative hypothyroidism, hyperlipidemia and recent CVA who presented to [facility] acute [facility]hab via EMS due to episode of drop in blood pressure diaphoresis and acute altered mental status. Patient had a stroke 10 days ago and was transferred to [facility]. The daughter is unsure of what interventions were done at [facility]--records are supposed to be requested. The patient has considerable expressive aphasia but can answer with yes and no and nods her head appropriately. She has a flaccid right arm and some movement of her right leg. 01/06: Patient is seen resting in bed with her daughter at the bedside. She is drowsy but her daughter states that she just had lunch. The patient is doing better than when s
[2024-01-10] VITALS: PULSE 59
[2024-01-10 04:00] VITALS: PULSE 69
[2024-01-10] MEDS: LEVOTHYROXINE SODIUM 100 MCG TABLET 200 MCG PO (05:36)
[2024-01-10 05:59] VITALS: BP 139/59; PULSE 68; RESP 12; TEMP 36.6; O2SAT 94
[2024-01-10 06:50] LABS: Basophils Absolute Auto 0.1 K/mm3 (0.0-0.1); Basophils Percent Auto 0.4 % (0.2-1.2); Eosinophils Absolute Auto 0.1 K/mm3 (0-0.3); Eosinophils Percent Auto 0.9 % (0-4.4); Hemoglobin 13.3 g/dL (12.0-15.0); Immature Granulocyte Absolute 0.05 K/mm3 (0.00-0.031); Immature Granulocyte Percent A 0.4 % (0-0.5); Lymphocytes Absolute Auto 3.33 K/mm3 (0.9-3.2); Mean Corpuscular HGB Conc 33.3 g/dl (32-36); Mean Corpuscular Hemoglobin 30.6 pg (26-34); Mean Platelet Volume 11.7 fl (7.4-10.4); Monocytes Absolute Auto 0.7 K/mm3 (0.1-0.6); Monocytes Percent Auto 5.8 % (2.6-8.5); Neutrophils Absolute Auto 7.7 K/mm3 (1.3-6.7); Neutrophils Percent Auto 64.5 % (45.5-73.1); Platelet Count Result 243 k/mm3 (150-375); Red Blood Count 4.35 M/mm3 (4.2-5.4); Red Cell Distribution Width 13.1 % (11.5-14.5); White Blood Count 11.9 K/mm3 (4.5-10.0)
[2024-01-10 07:07] LABS: Alanine Aminotransferase 21 U/L (6-35); Albumin Level 3.4 g/dL (3.5-5.1); Alkaline Phosphatase 77 U/L (38-126); Anion Gap 6 mmol/L (4-12); Aspartate Amino Transferase 30 U/L (14-36); Bilirubin,Total 0.7 mg/dL (0.2-1.3); Blood Urea Nitrogen 18 mg/dL (7-17); Calcium 8.6 mg/dL (8.4-10.2); Carbon Dioxide 24 mmol/L (22-30); Chloride 108 mmol/L (98-107); Estimated CRCL calculation 60 ml/min; Estimated Glomerular Filt Rate > 60; Glucose 96 mg/dL (65-110); Potassium 3.6 mmol/L (3.4-5.0); Sodium 138 mmol/L (137-145)
[2024-01-10 08:00] VITALS: PULSE 68
--- NOTE | 2024-01-10 08:49 | PM.IMPN ---
Progress Note: A&P Assessment and Plan (1) Acute hypokalemia: Code(s): E87.6 - Hypokalemia Status: Acute Assessment and Plan: stable (2) Vasovagal near syncope: Code(s): R55 - Syncope and collapse Status: Acute (3) Leukocytosis: Code(s): D72.829 - Elevated white blood cell count, unspecified Status: Acute Assessment and Plan: improved (4) DVT of lower extremity (deep venous thrombosis): Qualifiers: Affected thrombotic vein of extremity: unspecified vein of extremity Chronicity: unspecified Laterality: unspecified laterality Qualified Code(s): I82.409 - Acute embolism and thrombosis of unspecified deep veins of unspecified lower extremity Code(s): I82.409 - Acute embolism and thrombosis of unspecified deep veins of unspecified lower extremity Status: Acute Assessment and Plan: on eliquis (5) Hemiparesis affecting right side as late effect of stroke: Code(s): I69.351 - Hemiplegia and hemiparesis following cerebral infarction affecting right dominant side Status: Acute Assessment and Plan: on eliquis-continue discharge back to acute rehab (6) HTN (hypertension): Qualifiers: Hypertension type: primary hypertension Qualified Code(s): I10 - Essential (primary) hypertension Code(s): I10 - Essential (primary) hypertension Status: Acute (7) Hypothyroidism: Qualifiers: Hypothyroidism type: postablative Qualified Code(s): E89.0 - Postprocedural hypothyroidism Code(s): E03.9 - Hypothyroidism, unspecified Status: Acute (8) UTI (urinary tract infection): Code(s): N39.0 - Urinary tract infection, site not specified Status: Acute Assessment and Plan: switched to PO meds to compete the course of antibiotics Time Spent With Patient Time with patient: 15 - 25 minutes Subjective Date/time seen: 01/10/24 08:49 Interval history: blood cultures negative. urine culture back- pt is on appropriate antibiotics. see discharge summary 01/08. PT is stable for discharge Review of Systems Review of Systems: pt is alert/oriented. expressive aphasia, rt upper extr. flaccid- baseline. denies chest pain, n/v/d. stable for discharge. Exam Const: General: comfortable Resp: Effort & Inspection: normal respiratory effort Cardio: Rate: bradycardic Extrem: Other: rt side weakness Psych: Affect: normal affect Objective Data Vital Signs Vital Signs: Vital Signs - 24 hr 01/09/24 08:50 01/09/24 09:40 01/09/24 10:37 Temperature 96.5 F L Pulse Rate 56 L 63 58 L Respiratory Rate 18 Blood Pressure 131/77 Pulse Oximetry 98 Oxygen Delivery 01/09/24 10:39 01/09/24 12:02 01/09/24 14:00 Temperature 96.9 F L 97.5 F L Pulse Rate 60 56 L 60 Respiratory Rate 18 20 Blood Pressure 129/60 148/68 H Pulse Oximetry 95 100 Oxygen Delivery 01/09/24 17:15 01/09/24 20:25 01/09/24 21:21 Temperature 99.4 F Pulse Rate 59 L 62 64 Respiratory Rate 14 Blood Pressure 148/72 H Pulse Oximetry 99 Oxygen Delivery 01/09/24 20:00 01/09/24 20:00 01/10/24 00:00 Temperature Pulse Rate 66 59 L Respiratory Rate Blood Pressure Pulse Oximetry Oxygen Delivery Room Air 01/10/24 04:00 01/10/24 05:59 Temperature 97.9 F Pulse Rate 69 68 Respiratory Rate 12 Blood Pressure 139/59 L Pulse Oximetry 94 Oxygen Delivery Intake/Output Intake/Output: Intake & Output 01/07/24 01/08/24 01/09/24 01/10/24 23:59 23:59 23:59 23:59 Intake Total 2200 3540 3560 500 Output Total 650 600 Balance 1550 2940 3560 500 Meds/Results Medications: Active Medications Generic Name Dose Route Start Last Admin Trade Name Liliana PRN Reason Stop Dose Admin Amlodipine Besylate 10 mg 01/07/24 09:00 01/09/24 08:50 Amlodipine Besylate 5 Mg Tablet PO 10 mg DAILY ANDRESSA Administration Apixaban 5 mg
[2024-01-10 10:37] VITALS: PULSE 68
[2024-01-10] MEDS: carvediloL 25 MG TABLET PO (10:37)
[2024-01-10] MEDS: APIXABAN 5 MG TABLET PO (10:37)
[2024-01-10] MEDS: ROSUVASTATIN 20 MG TABLET PO (10:38)
[2024-01-10] MEDS: amLODIPine BESYLATE 5 MG TABLET 10 MG PO (10:38)
[2024-01-10] MEDS: CEPHALEXIN 500 MG CAPSULE PO (10:38)
[2024-01-10] MEDS: ASPIRIN 81 MG CHEWABLE TABLET PO (10:38)
--- NOTE | 2024-01-10 11:52 | PC.NURSE ---
called [facility] to give report; report given to Chely JAMES.
[2024-01-10 12:00] VITALS: PULSE 59
== END 2024-01-10 14:27 | DRG 312 ==
LOC: ANHED 13:23 → ANH3MEDSUR 16:34
PROVIDERS: Internal Medicine; Nurse Practitioner Acute Care; Admitting Provider Internal Medicine; Emergency Provider General Practice; Visit Provider Nurse Practitioner
DX: R55 Syncope and collapse (principal); I69.351 Hemiplegia and hemiparesis following cerebral infarction affecting right dominant side; N39.0 Urinary tract infection, site not specified; E87.6 Hypokalemia; E86.0 Dehydration; I10 Essential (primary) hypertension; I65.22 Occlusion and stenosis of left carotid artery; D75.1 Secondary polycythemia; N19 Unspecified kidney failure; E78.5 Hyperlipidemia, unspecified; E89.0 Postprocedural hypothyroidism; B96.20 Unspecified Escherichia coli [E. coli] as the cause of diseases classified elsewhere; R19.5 Other fecal abnormalities; G47.33 Obstructive sleep apnea (adult) (pediatric); I69.320 Aphasia following cerebral infarction; Z79.82 Long term (current) use of aspirin; Z79.01 Long term (current) use of anticoagulants; I69.398 Other sequelae of cerebral infarction; Z87.891 Personal history of nicotine dependence; Z86.718 Personal history of other venous thrombosis and embolism
CPT/HCPCS: 36415; 70450; 71045; 80053; 81001; 82274; 83735; 84484; 85025; 85610; 85730; 87040; 87077; 87086; 87088; 87186; 92522; 92526; 92610; 93005; 96365; 96366; 96368; 96376; 97110; 97162; 97166; 97530; 99285; A4565; A9270; G0378; J0696; J7040

== ENCOUNTER 2024-01-19 11:09 | Inpatient (IN) | payer MEDICARE, OTHER, SELFPAY ==
[2024-01-19] VITALS (14 sets, daily range): BP systolic 117–144; BP diastolic 43–92; PULSE 56–68; RESP 12–22; TEMP 35.7–36.8; O2SAT 96–100; BMI 28.0; BMI 34.4
--- NOTE | ~2024-01-19 | CT_ITS ---
EXAMINATION: CT abdomen pelvis w con DATE: 01/19/2024 15:23 INDICATION: Abdominal distention and pain. TECHNIQUE: Computed tomography (CT) of the abdomen and pelvis was performed with 100 mL Omnipaque 350 intravenous contrast. Automated exposure control and iterative reconstruction technique were employe d. The dose-length product was 1575.54 mGy-cm. COMPARISON: CT abdomen and pelvis 02/06/2015 FINDINGS: The visualized portions of the lung bases demonstrate mild atelectasis. No pleural effusion . Cardiomegaly is noted. No pericardial effusion. There are coronary artery calcifications. There is a 5 mm cyst in the liver. There is moderate intrahepatic biliary duct dilatation. The common duct is dilated to 17 mm, worsened from 11 mm, likely not clinically significant given the normal bilirubin a nd alkaline phosphatase. The spleen, pancreas, and adrenal glands are normal. There are cysts in the kidneys measuring up to 4.8 cm on the left. There is cortical thinning of the kidneys. Stool distends the rectum. The appendix is normal. The endometrial complex is thickened to 11 mm. There are no path ologically enlarged lymph nodes. There is no free intraperitoneal fluid. There is mild thoracic and l umbar spondylosis. IMPRESSION: 1. Stool distends the rectum. 2. Thickened endometrial complex. The differential diagnosis includes endometrial hyperplasia, polyp, and carcinoma. Biopsy is recommended. Reviewed, dictated and finalized at location E. IMPRESSION: 1. Stool distends the rectum. 2. Thickened endometrial complex. The differential diagnosis includes endometri al hyperplasia, polyp, and carcinoma. Biopsy is recommended.
--- NOTE | ~2024-01-19 | XR_ITS ---
EXAMINATION: XR chest 2V DATE: 01/19/2024 11:40 INDICATION: Right-sided chest pain. EKG changes. TECHNIQUE: frontal and lateral views of the chest were obtained. COMPARISON: Chest radiograph dated 01/06/2024 FINDINGS: Increased interstitial pattern groundglass opacity in the bilateral lower lung zones. No pleural effu horacio or pneumothorax. Cardiomegaly. Cholecystectomy clips in the right upper quadrant. IMPRESSION: 1. Interstitial and airspace opacities in the bilateral lower lungs which could represent atelectasis , mild pulmonary edema or pneumonia. 2. Cardiomegaly. Reviewed, dictated and finalized at location A. IMPRESSION: 1. Interstitial and airspace opacities in the bilateral lower lungs which could represent atelectasis, mild pulmonary edema or pneumonia. 2. Cardiomegaly.
--- NOTE | 2024-01-19 11:12 | ECG_ITS ---
Test Date: 2024-01-19 11:15:24 Measurements Intervals [place] Rate: 60 P: 91 [place]: 195 QRS: -21 QRSD: 98 T: 63 QT: 427 QTc: 430 Interpretive Statements SINUS RHYTHM VOLTAGE CRITERIA FOR LVH [MEETS CRITERIA IN ONE OF: R(aVL), S(V1), R(V5), R(V5/V6)+S(V1)] INFERIOR MYOCARDIAL INFARCTION , PROBABLY OLD [40+ ms Q WAVE AND/OR ST/T ABNORMALITY IN II/aVF] MODERATE T-WAVE ABNORMALITY, CONSIDER LATERAL ISCHEMIA [-0.1+ mV T WAVE IN I/aVL/V5/V6] Compared to ECG 01/09/2024 11:05:27 T-wave abnormality now present Possible ischemia now present Sinus bradycardia no longer present First degree AV block no longer present Electronically Signed On 01-19-2024 16:18:20 CDT by Clyde Ruvalcaba M.D.
[2024-01-19 11:40] LABS: Basophils Absolute Auto 0.1 K/mm3 (0.0-0.1); Basophils Percent Auto 0.4 % (0.2-1.2); Eosinophils Absolute Auto 0.4 K/mm3 (0-0.3); Eosinophils Percent Auto 2.6 % (0-4.4); Hematocrit 44.1 % (37.0-47.0); Hemoglobin 14.7 g/dL (12.0-15.0); Immature Granulocyte Absolute 0.04 K/mm3 (0.00-0.031); Immature Granulocyte Percent A 0.3 % (0-0.5); Lymphocytes Absolute Auto 2.76 K/mm3 (0.9-3.2); Lymphocytes Percent Auto 20.4 % (18.3-44.2); Mean Corpuscular HGB Conc 33.3 g/dl (32-36); Mean Corpuscular Hemoglobin 30.6 pg (26-34); Mean Corpuscular Volume 91.9 fl (80-100); Monocytes Absolute Auto 0.8 K/mm3 (0.1-0.6); Monocytes Percent Auto 6.1 % (2.6-8.5); Neutrophils Absolute Auto 9.5 K/mm3 (1.3-6.7); Neutrophils Percent Auto 70.2 % (45.5-73.1); Platelet Count Result 256 k/mm3 (150-375); Red Cell Distribution Width 13.4 % (11.5-14.5); White Blood Count 13.6 K/mm3 (4.5-10.0)
[2024-01-19 11:51] LABS: Alanine Aminotransferase 40 U/L (6-35); Albumin Level 4.2 g/dL (3.5-5.1); Alkaline Phosphatase 101 U/L (38-126); Anion Gap 7 mmol/L (4-12); Aspartate Amino Transferase 46 U/L (14-36); Bilirubin,Total 1.2 mg/dL (0.2-1.3); Blood Urea Nitrogen 36 mg/dL (7-17); Calcium 9.8 mg/dL (8.4-10.2); Carbon Dioxide 32 mmol/L (22-30); Chloride 103 mmol/L (98-107); Estimated CRCL calculation 49 ml/min; Estimated Glomerular Filt Rate > 60; Glucose 140 mg/dL (65-110); Lipase 164 U/L (23-300); Potassium 3.2 mmol/L (3.4-5.0); Sodium 142 mmol/L (137-145)
[2024-01-19 11:54] LABS: INR 1.8; Prothrombin Time 21.1 Seconds (11.1-14.7)
[2024-01-19 11:55] LABS: Partial Thromboplastin Time 31.8 Seconds (22.3-36.8)
[2024-01-19] MEDS: ONDANSETRON INJ 4 MG/2 ML VIAL IV PUSH (11:57)
[2024-01-19] MEDS: MORPHINE SULFATE (*CRX) 2 MG/ML INJ IV PUSH ×3 (11:57→17:34)
[2024-01-19 12:02] LABS: Troponin I < 0.012 ng/mL (0.000-0.034)
--- NOTE | 2024-01-19 12:31 | ED.CHESTPAIN ---
HPI - Chest Pain General Chief Complaint: Chest Pain Stated Complaint: Chest pain History of Present Illness HPI narrative: Patient is a 78-year-old female who presents to the emergency department this afternoon from [facility] complaining of right-sided chest pain that started this morning. Staff performed an EKG and will concerned for some ischemic changes from the EKG on Saturday. Patient was brought here today this afternoon for further evaluation. Patient that administered 3 doses of nitro with no relief of patient's pain. Patient does have history of right-sided deficits from a previous stroke. No additional symptoms or concerns at this time. Patient is a poor historian and the remainder of the history present illness and review of system is limited secondary to her poor historian status. Patient is currently at her baseline. Related Data Home Medications Medication Instructions Recorded Confirmed apixaban 5 mg tablet 5 mg PO BID 01/02/24 01/10/24 aspirin 81 mg chewable tablet 81 mg PO DAILY 01/02/24 01/10/24 carvedilol 25 mg tablet 25 mg PO BID 01/02/24 01/10/24 hydrochlorothiazide 25 mg tablet 25 mg PO DAILY 01/02/24 01/10/24 levothyroxine 200 mcg tablet 200 mcg PO DAILY 01/02/24 01/10/24 rosuvastatin 20 mg tablet 20 mg PO DAILY 01/02/24 01/10/24 vitamin A 3,000 mcg (10,000 unit) 3,000 mcg PO DAILY 01/02/24 01/10/24 capsule amlodipine 10 mg tablet 10 mg PO DAILY 01/10/24 01/10/24 Allergies Allergy/AdvReac Type Severity Reaction Status Date / Time azithromycin AdvReac Nausea and Verified 01/06/24 17:10 Vomiting codeine AdvReac Nausea and Verified 01/06/24 17:10 Vomiting erythromycin base AdvReac Nausea and Verified 01/06/24 17:10 Vomiting Review of Systems Review of Systems: Unable to obtain full review of systems secondary to patient's poor historian status. PMFSH Past Medical History Medical History Acute ischemic left MCA stroke Aphasia as late effect of stroke DVT of lower extremity (deep venous thrombosis) Hemiparesis affecting right side as late effect of stroke HTN (hypertension) Hyperlipidemia Hypothyroidism Postablative hypothyroid Obstructive sleep apnea with obesity hypoventilation Vision disturbance following CVA (cerebrovascular accident) Surgical History Surgical History No significant past surgical history Social History Social History Social History: The patient lives with her daughter in [facility] until recent visit to family members in the [place] She has lived in a [facility] for 2 years. She has 2 biologic daughters and 1 biologic son and multiple step children. Prior to her stroke she occasionally ambulated with a cane. She was otherwise independent activities of daily living. She smoked 1 pack of cigarettes per day from the time she was a teenager until approximately 30 years ago. She usually drink a glass of wine a night. She denies history of illicit substance use. Healthcare power of gas mask inspector: Tanvi Damonrigo (daughter) for Aamir Dubon Code status: Full code Smoking packs per day: 1 Smoking cigarettes per day: 20.0 Years smoked: 30 Smoking pack-years: 30.00 Smoking status: Unknown if ever smoked Alcohol intake: never Drinks per week: 7 Alcohol use details: A glass of wine a night Substance use: never Substance use type: does not use Do You Feel Safe in your Home?: Yes Lack of Transportation: No Lack of Food: Never True Current Housing: I Have Housing Concerned About Future Housing: No Difficulty Paying Gas/Electric Bills: No Difficulty Paying for Meds: No Currently Unemployed: No Education: Don't Know Difficulty w/ Childcare or Family Care: No Occupation/Education: retired Additional occupation/education comments: [employer]
[2024-01-19] MEDS: POTASSIUM CHLORIDE 20 MEQ PACKET (FOR LIQUID) 40 MEQ PO (13:10)
--- NOTE | 2024-01-19 14:04 | ECG_ITS ---
Test Date: 2024-01-19 14:11:28 Measurements Intervals [place] Rate: 61 P: 55 [place]: 197 QRS: -18 QRSD: 98 T: 14 QT: 427 QTc: 431 Interpretive Statements SINUS RHYTHM VOLTAGE CRITERIA FOR LVH [MEETS CRITERIA IN ONE OF: R(aVL), S(V1), R(V5), R(V5/V6)+S(V1)] INFERIOR MYOCARDIAL INFARCTION , PROBABLY OLD [40+ ms Q WAVE AND/OR ST/T ABNORMALITY IN II/aVF] Compared to ECG 01/19/2024 11:15:24 no change compared to prior EKG Electronically Signed On 01-19-2024 16:19:22 CDT by Clyde Ruvalcaba M.D.
[2024-01-19 14:41] LABS: Troponin I < 0.012 ng/mL (0.000-0.034)
--- NOTE | 2024-01-19 16:40 | PM.IMHP ---
H&P: HPI History of Present Illness Date/Time: 01/19/24 19:45 Chief Complaint: Chest pain. Narrative: This is a 78-year-old female with history of sleep apnea, hypertension, postablative hypothyroidism, hyperlipidemia, and recent stroke for which she is currently undergoing rehab at [facility] who presented to the emergency department for evaluation of chest pain. The patient is not the best historian given her expressive aphasia and some of the following is obtained via a review of her EMR as well as information provided by her daughter Kristin who was at bedside. Today she was reportedly complaining of chest pain and she was sent in for evaluation as her EKG showed findings concerning for ischemia. She was administered 3 doses of sublingual nitroglycerin prior to transfer which reportedly was of no benefit. At the time of my evaluation the patient points to her right anterior shoulder and right mid to lower quadrant as the site of her pain. She is not able to describe the pain or report any associated symptoms. She had reproducible tenderness over the right anterior chest wall on exam and also in the right mid and lower quadrant. Her appetite has not been great. She denies fever, palpitations, shortness of breath vomiting, dysuria, and diarrhea. In the ED: Vital signs were stable on arrival.? Labs were significant for WBC count of 13.6, potassium 3.2, BUN 36, creatinine 0.80, glucose 140, AST 46, ALT 40, troponin less than 0.012, lipase 164. Chest x-ray showed interstitial and airspace opacities in the bilateral lower lung zones which could be atelectasis, mild pulmonary edema, or pneumonia and cardiomegaly. CT of the abdomen and pelvis showed stool distending the rectum and a thickened endometrial complex as well as moderate intrahepatic biliary duct dilatation. The visualized portions of the lung bases demonstrate mild atelectasis. EKG showed sinus rhythm with voltage criteria for LVH, and probably old inferior myocardial infarction. She is being admitted in this setting for close monitoring and further workup. Review of Systems Review of Systems: Difficult to obtain a solid history from the patient given her expressive aphasia. Except as documented all other systems were reviewed and are negative. [facility] Past Medical History Medical History (Updated 01/20/24 @ 00:22 by Charlette Calzada PA-C) Acute ischemic left MCA stroke (12/2023) With residual right hemiparesis and aphasia. Deep venous thrombosis Hyperlipidemia Hypertension Hypothyroidism Postablative hypothyroid Obstructive sleep apnea with obesity hypoventilation Surgical History Surgical History (Updated 01/20/24 @ 00:18 by Charlette Calzada PA-C) History of cholecystectomy Social History Social History (Updated 01/20/24 @ 00:19 by Charlette Calzada PA-C) Social History: The patient lives with her daughter in [facility]. [place] visiting family members. She has 2 biologic daughters and 1 biologic son and multiple step children. Prior to her stroke she occasionally ambulated with a cane and she was otherwise independent with activities of daily living. She smoked 1 pack of cigarettes per day from the time she was a teenager until approximately 30 years ago. She usually drink a glass of wine a night. She denies history of illicit substance use. Healthcare power of mergers and acquisitions attorney: Tanvi Medina (daughter). Code status: Full code. Smoking packs per day: 1 Smoking cigarettes per day: 20.0 Years smoked: 30 Smoking pack-years: 30.00 Smoking status: Former smoker Alcohol intake: current Alcohol use details: A glass of wine a night Substance use: never Substance use type: does not use Do You Feel Safe in your Home?: Yes Lack of Transportation: No Lack of Food: Never True Current Housing: I Have Housing Concerned About Future Housing: No Difficulty Paying Gas/Electric Bills: No Difficulty Payi
[2024-01-19] MEDS: SODIUM CHLORIDE 0.9% IV 1,000 ML 100 ML IV CONT (17:34)
--- NOTE | 2024-01-19 17:37 | ECG_ITS ---
Test Date: 2024-01-19 17:40:18 Measurements Intervals [place] Rate: 59 P: 50 [place]: 214 QRS: -16 QRSD: 98 T: 44 QT: 427 QTc: 425 Interpretive Statements SINUS BRADYCARDIA WITH FIRST DEGREE AV BLOCK LEFT VENTRICULAR HYPERTROPHY WITH ST-T CHANGE INFERIOR INFARCT, AGE INDETERMINATE BASELINE ARTIFACT- I, II, AVR, AVL, AVF, V1-V3, V5 ABNORMAL ECG Compared to ECG 01/19/2024 14:11:28 First degree AV block now present Sinus rhythm no longer present Electronically Signed On 01-20-2024 06:12:28 CDT by Patrick Gómez D.O.
[2024-01-19 18:14] LABS: Troponin I < 0.012 ng/mL (0.000-0.034)
--- NOTE | 2024-01-19 18:22 | ADMGEN ---
This patient, Carol Rosa, was admitted to IMU Room 200-01. Patient/family oriented to hospital policies and general routines including ID bracelet, bed and alarms, visiting hours, pain management, procedures, bathroom and other care routines, personal items, smoking policy, room service/diet, and visiting hours. Information on how to activate the Rapid Response Team has been discussed. Patient/Family are encouraged to report perceived risks to care and to ask questions if they do not understand what they are told or what they should do.
[2024-01-19] MEDS: polyethylene glycoL 3350 17 GM POWD.PACK PO (21:39)
[2024-01-19] MEDS: DOCUSATE SODIUM 100 MG CAPSULE PO (21:40)
[2024-01-19] MEDS: APIXABAN 5 MG TABLET PO (21:40)
[2024-01-19] MEDS: carvediloL 25 MG TABLET PO (21:40)
[2024-01-19 22:09] LABS: Appearance Urine Clear (Clear); Bilirubin Urine Negative (Negative); Blood Urine Negative (Negative); Color Urine Yellow (Yellow); Glucose Urine UA Negative (Negative); Ketones Urine Negative (Negative); Leukocyte Esterase Ur Negative LEU/UL (Negative); Nitrate Urine Negative (Negative); Protein Urine Negative (Negative); pH Urine 6.5 (5.0-9.0)
[2024-01-19 22:12] LABS: Add Urine Microscopic? NO
[2024-01-20] VITALS (21 sets, daily range): BP systolic 125–159; BP diastolic 38–63; PULSE 51–66; RESP 16–24; TEMP 35.8–36.9; O2SAT 94–100
--- NOTE | 2024-01-20 | ECHO_ITS ---
Patient Info Name: Carol Rosa Age: 78 years : 1945 Gender: Female Ht: 64 in Wt: 200 lbs BSA: 2.06 m2 HR: 59 bpm BP: 148 / 51 mmHg Heart Rhythm: Sinus Rhythm Technical Quality: Fair Exam Date: 01/20/2024 7:16 AM Exam Location: Echo Lab Patient Status: Inpatient Admit Date: 01/19/2024 Staff Ordering Physician: Charlette Calzada PA-C [employer] Mechanical Engineer: Le Vazquez RDCS Attending Provider: Kacey Santiago MD Referring Physician: Elsi EVERETT; Exam Type: CA echo doppler color flow Study Info Indications R94.31 - Abnormal electrocardiogram ECG EKG R07.9 - Chest pain, unspecified Complete two-dimensional, color flow and Doppler transthoracic echocardiogram is performed. Summary 1. Complete two-dimensional, color flow and Doppler transthoracic echocardiogram is performed. 2. Concentric left ventricular hypertrophy with vigorous systolic function and grade 1 diastolic noncompliance. 3. Moderate biatrial dilation. 4. Sclerotic aortic valve with well maintained leaflet separation. Left Ventricle Left ventricular chamber dimension is normal. Left ventricular systolic function is normal, estimated at 65-70%. There is mild concentric increased left ventricular wall thickness. The left ventricular diastolic function is grade I diastolic dysfunction. Right Ventricle Right ventricular chamber dimension is normal. Right ventricular systolic function is normal. Left Atria Left atrial chamber dimension is moderately enlarged. Right Atria Right atrial chamber dimension is moderately enlarged. Aortic Valve The aortic valve is trileaflet. There is mild aortic valve sclerosis. Pulmonic Valve The pulmonic valve is normal. There is mild pulmonic regurgitation. Mitral Valve The mitral valve has normal leaflets. Tricuspid Valve The tricuspid valve leaflets are normal. Pericardium/Pleural The pericardium appears normal. Aorta The aortic root size at the sinus of Valsalva is normal. Left Ventricular Outflow Tract Name Value Normal LVOT 2D LVOT Diameter 2.0 cm LVOT Doppler LVOT Peak Gradient 3 mmHg LVOT Mean Gradient 2 mmHg LVOT VTI 23 cm LVOT VTI/AV VTI Ratio 0.6 LVOT Stroke Volume 77 ml LVOT CO 3.9 l/min LVOT CI 1.9 l/min/m2 Pulmonic Valve Name Value Normal RVOT Doppler RVOT Peak Gradient 1 mmHg PV Doppler PV Peak Gradient 3 mmHg Mitral Valve Name Value Normal MV Doppler
[2024-01-20 04:09] LABS: Hematocrit 43.7 % (37.0-47.0); Hemoglobin 14.5 g/dL (12.0-15.0); Mean Corpuscular HGB Conc 33.2 g/dl (32-36); Mean Corpuscular Hemoglobin 30.7 pg (26-34); Mean Corpuscular Volume 92.4 fl (80-100); Mean Platelet Volume 11.9 fl (7.4-10.4); Platelet Count Result 216 k/mm3 (150-375); Red Blood Count 4.73 M/mm3 (4.2-5.4); Red Cell Distribution Width 13.2 % (11.5-14.5); White Blood Count 13.1 K/mm3 (4.5-10.0)
[2024-01-20 04:33] LABS: Alanine Aminotransferase 76 U/L (6-35); Albumin Level 4.3 g/dL (3.5-5.1); Alkaline Phosphatase 137 U/L (38-126); Anion Gap 6 mmol/L (4-12); Aspartate Amino Transferase 73 U/L (14-36); Bilirubin,Total 1.4 mg/dL (0.2-1.3); Blood Urea Nitrogen 29 mg/dL (7-17); Calcium 9.6 mg/dL (8.4-10.2); Carbon Dioxide 32 mmol/L (22-30); Chloride 104 mmol/L (98-107); Estimated CRCL calculation 55 ml/min; Estimated Glomerular Filt Rate > 60; Glucose 127 mg/dL (65-110); Lipase 115 U/L (23-300); Potassium 3.4 mmol/L (3.4-5.0); Sodium 142 mmol/L (137-145)
[2024-01-20] MEDS: LEVOTHYROXINE SODIUM 100 MCG TABLET 200 MCG PO (05:55)
[2024-01-20] MEDS: DOCUSATE SODIUM 100 MG CAPSULE PO ×2 (09:45→20:41)
[2024-01-20] MEDS: polyethylene glycoL 3350 17 GM POWD.PACK PO (09:45)
[2024-01-20] MEDS: APIXABAN 5 MG TABLET PO ×3 (09:45→20:47)
[2024-01-20] MEDS: ROSUVASTATIN 20 MG TABLET PO ×2 (09:45→09:50)
[2024-01-20] MEDS: ASPIRIN 81 MG CHEWABLE TABLET PO (09:45)
[2024-01-20] MEDS: amLODIPine BESYLATE 5 MG TABLET 10 MG PO (09:45)
[2024-01-20] MEDS: HYDROmorphone HCL INJ (*CRX) 1 MG/ML SYR 0.5 MG IV PUSH (12:20)
[2024-01-20] MEDS: DOCUSATE SODIUM 400 MG/400 ML ENEMA RECTAL (12:35)
--- NOTE | 2024-01-20 14:33 | PC.NURSE ---
Pt administered colace enema, followed by soap suds enema. Did not move bowels. Having severe abdominal pain, right side of abdomen. Tried giving Dilaudid with minimal relief. Reported the above to Dr. Berry, as well as increasing LFTs. Order received to give Bentyl IM.
[2024-01-20] MEDS: DICYCLOMINE HCL INJ 20 MG/2 ML VIAL IM (17:19)
--- NOTE | 2024-01-20 17:36 | PM.IMPN ---
Progress Note: A&P Assessment and Plan (1) Chest pain: Code(s): R07.9 - Chest pain, unspecified Status: Acute (2) Right lateral abdominal pain: Code(s): R10.9 - Unspecified abdominal pain Status: Acute (3) Hypokalemia: Code(s): E87.6 - Hypokalemia Status: Acute (4) Thickened endometrium: Code(s): R93.89 - Abnormal findings on diagnostic imaging of other specified body structures Status: Acute (5) Impacted stool in rectum: Code(s): K56.41 - Fecal impaction Status: Acute (6) Hypertension: Code(s): I10 - Essential (primary) hypertension Status: Acute Plan Acute and principal conditions 1. Chest pain 2. Abdominal pain 3. Constipation Cardiology and General surgery consulted Heart monitoring Stool softeners; Bentyl Chronic and stable conditions 1. Obesity, BMI 34 2. Hypertension. on Amlodipine 3. Chronic A-fib w/RVR. on Apixaban, Carvedilol 4. Dyslipidemia. On Statin Miscellaneous care. Code status. Full Nutrition. Heart healthy VTE prophylaxis. SCDs; Apixaban The patient presented to the emergency department for evaluation of right-sided chest pain as detailed in HPI. Labs, imaging, EKG, and all reports were personally reviewed. Initial troponin was normal and EKG was without acute ST segment elevations or significant depressions. Time Spent With Patient Time with patient: 25 - 35 minutes Subjective Date/time seen: 01/20/24 17:36 Interval history: Carol Rosa is a 78-year-old female with history of sleep apnea, hypertension, postablative hypothyroidism, hyperlipidemia, and recent stroke for which she is currently undergoing rehab at [facility] who presented to the emergency department for evaluation of chest pain. The patient is not the best historian given her expressive aphasia and some of the following is obtained via a review of her EMR as well as information provided by her daughter Kristin who was at bedside. She was admitted, to be evaluated and managed for constipation and chest pain Review of Systems Review of Systems: Difficult to obtain a solid history from the patient given her expressive aphasia. Except as documented all other systems were reviewed and are negative. Exam Narrative: General: Chronically ill-appearing female in the semi-Tee position in bed. Weight: 91 kg. BMI: 34.4. HEENT: PERRL, EOMI. Sclera anicteric. Tacky mucous membranes. Oropharynx is crowded. Neck: Supple. Large neck circumference. No obvious JVD. Respiratory: Respirations are nonlabored and lungs are clear to auscultation bilaterally. Cardiovascular: Regular rate and rhythm with S1-S2. Chest: Mild tenderness to palpation over the right anterior chest wall. Gastrointestinal: Abdomen is soft, obese, and nondistended with positive bowel sounds. She is tender to palpation in the right mid to lower quadrant laterally. No guarding or rebound tenderness. Skin: Warm and dry. Extremities: No cyanosis, clubbing, or significant edema. Radial and pedal pulses intact. Musculoskeletal: No complaints of pain with passive range of motion of the right shoulder. Neurological: Alert. Difficult to assess for orientation due to expressive aphasia. She is able to tell me her name, age, and date of . She is aware that she is in the hospital. Cranial nerves 2-12 are grossly intact. Perhaps mild drooping of the right mouth. She has flaccid paralysis of the right upper extremity but can move her right leg somewhat though cannot raise it to gravity. Psychiatric: Cooperative with appropriate mood and affect. Objective Data Vital Signs Vital Signs: Vital Signs - 24 hr 01/19/24 17:46 01/19/24 18:25 01/19/24 19:39 Temperature 96.3 F L 97.7 F Pulse Rate 60 62 56 L Respiratory Rate 16 22 H 16 Blood Pressure 119/51 L 117/47 L 123/43 L Pulse Oximetry 100 96 98 Oxygen Delivery 01/19/24 21:40 01/19/24 20:00 01/19/24 20:00 Temperature Pu
[2024-01-20] MEDS: MORPHINE SULFATE (*CRX) 2 MG/ML INJ IV PUSH (18:55)
[2024-01-20] MEDS: DEXTROSE 5%/0.9% SOD CHL 1,000 ML 75 ML IV CONT (19:00)
[2024-01-20] MEDS: carvediloL 25 MG TABLET PO (20:41)
[2024-01-21] VITALS (21 sets, daily range): BP systolic 126–152; BP diastolic 49–64; PULSE 53–66; RESP 18–22; TEMP 36.2–36.9; O2SAT 94–100
[2024-01-21 04:40] LABS: Basophils Percent Auto 0.4 % (0.2-1.2); Eosinophils Absolute Auto 0.6 K/mm3 (0-0.3); Eosinophils Percent Auto 6.2 % (0-4.4); Hematocrit 40.4 % (37.0-47.0); Hemoglobin 13.3 g/dL (12.0-15.0); Immature Granulocyte Absolute 0.02 K/mm3 (0.00-0.031); Immature Granulocyte Percent A 0.2 % (0-0.5); Lymphocytes Absolute Auto 2.79 K/mm3 (0.9-3.2); Lymphocytes Percent Auto 28.8 % (18.3-44.2); Mean Corpuscular HGB Conc 32.9 g/dl (32-36); Mean Corpuscular Hemoglobin 30.7 pg (26-34); Mean Corpuscular Volume 93.3 fl (80-100); Mean Platelet Volume 12.5 fl (7.4-10.4); Monocytes Absolute Auto 0.7 K/mm3 (0.1-0.6); Monocytes Percent Auto 7.4 % (2.6-8.5); Neutrophils Absolute Auto 5.5 K/mm3 (1.3-6.7); Platelet Count Result 212 k/mm3 (150-375); Red Blood Count 4.33 M/mm3 (4.2-5.4); Red Cell Distribution Width 13.1 % (11.5-14.5); White Blood Count 9.7 K/mm3 (4.5-10.0)
[2024-01-21 04:56] LABS: Alanine Aminotransferase 54 U/L (6-35); Albumin Level 3.7 g/dL (3.5-5.1); Alkaline Phosphatase 108 U/L (38-126); Anion Gap 5 mmol/L (4-12); Aspartate Amino Transferase 49 U/L (14-36); Bilirubin,Total 1.3 mg/dL (0.2-1.3); Blood Urea Nitrogen 27 mg/dL (7-17); Calcium 8.8 mg/dL (8.4-10.2); Carbon Dioxide 30 mmol/L (22-30); Chloride 104 mmol/L (98-107); Estimated CRCL calculation 62 ml/min; Estimated Glomerular Filt Rate > 60; Glucose 121 mg/dL (65-110); Sodium 139 mmol/L (137-145)
[2024-01-21] MEDS: LEVOTHYROXINE SODIUM 100 MCG TABLET 200 MCG PO (05:24)
--- NOTE | 2024-01-21 07:36 | PM.CNCAR ---
Assessment and Plan Assessment and plan (1) Chest pain: Code(s): R07.9 - Chest pain, unspecified Status: Acute Assessment and Plan: It is musculoskeletal chest pains. EKG, echo and troponin are unremarkable. No further cardiac workup is needed. (2) Hypertension: Code(s): I10 - Essential (primary) hypertension Status: Acute Assessment and Plan: Stable. (3) CVA (cerebral vascular accident): Code(s): I63.9 - Cerebral infarction, unspecified Status: Acute Assessment and Plan: On aspirin. (4) DVT of lower extremity (deep venous thrombosis): Qualifiers: Affected thrombotic vein of extremity: unspecified vein of extremity Chronicity: unspecified Laterality: unspecified laterality Qualified Code(s): I82.409 - Acute embolism and thrombosis of unspecified deep veins of unspecified lower extremity Code(s): I82.409 - Acute embolism and thrombosis of unspecified deep veins of unspecified lower extremity Status: Acute Assessment and Plan: On Eliquis. (5) Hyperlipidemia: Code(s): E78.5 - Hyperlipidemia, unspecified Status: Acute Assessment and Plan: On Atorvastatin. History of Present Illness History of Present Illness Consult date/time: 01/21/24 07:36 Reason For Visit: CP Narrative: 78 yr old woman present to hospital from rehab for chest pain. She has a history of ischemic stroke from left internal carotid severe stenosis at terminus and left M1 MCA, and total occlusion of M2 MCA with residual left sided paralysis and aphasia from 12/27/23, DVT of left leg, hypertension, dyslipidemia. Reports she had chest pains intermittently for hours yesterday at rehab. It is reproducible by palpation of tense right sided pectoralis muscle. Not having chest pains now. Denies sob, orthopnea, PND, edema, dizziness, palpitations. Review of Systems Review of Systems: All systems reviewed & are unremarkable except as noted in HPI and below Constitutional: Constitutional: Reports as per HPI, Denies chills and Denies fever(s) Cardiovascular: Cardiovascular: Reports as per HPI, Reports chest pain and Denies irregular heart rhythm Respiratory: Respiratory: Reports as per HPI and Denies dyspnea Gastrointestinal: Gastrointestinal: Reports as per HPI and Denies abdominal pain Genitourinary: Genitourinary: Reports as per HPI and Denies dysuria Musculoskeletal: Musculoskeletal: Reports as per HPI Neurologic: Reports as per HPI, Denies dizziness and Denies syncope [facility] Past Medical History Medical History (Updated 01/21/24 @ 07:41 by Patrick Gómez DO) Acute ischemic left MCA stroke (12/2023) With residual right hemiparesis and aphasia. Deep venous thrombosis Hyperlipidemia Hypertension Hypothyroidism Postablative hypothyroid Obstructive sleep apnea with obesity hypoventilation Surgical History Surgical History (Updated 01/20/24 @ 00:18 by Charlette Calzada PA-C) History of cholecystectomy Social History Social History (Updated 01/20/24 @ 00:19 by Charlette Calzada PA-C) Social History: The patient lives with her daughter in [facility]. [place] visiting family members. She has 2 biologic daughters and 1 biologic son and multiple step children. Prior to her stroke she occasionally ambulated with a cane and she was otherwise independent with activities of daily living. She smoked 1 pack of cigarettes per day from the time she was a teenager until approximately 30 years ago. She usually drink a glass of wine a night. She denies history of illicit substance use. Healthcare power of commercial litigation attorney: Tanvi Damonleidionne (daughter). Code status: Full code. Smoking packs per day: 1 Smoking cigarettes per day: 20.0 Years smoked: 30 Smoking pack-years: 30.00 Smoking status: Former smoker Alcohol intake: current Alcohol use details: A glass of wine a night Substance use: aidan
[2024-01-21] MEDS: DEXTROSE 5%/0.9% SOD CHL 1,000 ML 75 ML IV CONT (08:48)
[2024-01-21] MEDS: amLODIPine BESYLATE 5 MG TABLET 10 MG PO (08:49)
[2024-01-21] MEDS: ROSUVASTATIN 20 MG TABLET PO (08:49)
[2024-01-21] MEDS: DOCUSATE SODIUM 100 MG CAPSULE PO ×2 (08:49→19:51)
[2024-01-21] MEDS: ASPIRIN 81 MG CHEWABLE TABLET PO (08:49)
[2024-01-21] MEDS: APIXABAN 5 MG TABLET PO ×2 (08:49→19:51)
[2024-01-21] MEDS: carvediloL 25 MG TABLET PO ×2 (08:50→19:51)
[2024-01-21] MEDS: polyethylene glycoL 3350 17 GM POWD.PACK PO (08:52)
--- NOTE | 2024-01-21 10:23 | PM.CNGS ---
Assessment and Plan Assessment and plan (1) Abdominal pain: Code(s): R10.9 - Unspecified abdominal pain Status: Acute Assessment and Plan: Patient is a poor historian but there was reports of abdominal pain on admission. CT abdomen/pelvis showed fecal impaction and no other acute findings that would cause her abdominal pain. This could be related to constipation and her fecal impaction. Her abdominal pain has resolved and her abdominal exam is benign. She had one BM in the ED per nursing but has not had a BM since admission. I was able to manually disimpact her today with a moderate amount of hard stool that I was able to get out, but there is still some hard stool that was palpable that I could not reach. Will order another fleets enema this afternoon. She may benefit from mineral oil enema, but she is unable to hold the enema per staff. She also has stools softeners and Miralax ordered this morning. No indication for any surgical management at this time. Continue supportive care. (2) Impacted stool in rectum: Code(s): K56.41 - Fecal impaction Status: Acute Assessment and Plan: Manually disimpacted this morning. Continue enemas. Hopefully this will help break up the stool ball. (3) Chest pain: Code(s): R07.9 - Chest pain, unspecified Status: Acute Assessment and Plan: Cardiac workup negative, Cardiology suggests this is musculoskeletal and she does not need any further cardiac workup. Unclear if this was chest pain or epigastric pain, as she is not complaining of any pain for me today. Regardless, she would not be having any radiating epigastric pain that could be related to cholecystitis as she is s/p cholecystectomy. (4) CVA (cerebral vascular accident): Code(s): I63.9 - Cerebral infarction, unspecified Status: Acute Assessment and Plan: Recent ischemic stroke in December of 2023 with right hemiparesis and aphasia. She was in [facility] following her stroke. (5) Thickened endometrium: Code(s): R93.89 - Abnormal findings on diagnostic imaging of other specified body structures Status: Acute Assessment and Plan: Incidentally noted on CT, recommend further workup by gynecology that can be done as an outpatient Plan I have discussed the patient's case and plan of care with Dr. Eduardo. Thank you for allowing us to see the patient in consultation. History of Present Illness Consult details Consult date: 01/21/24 Reason for consult: other (Abdominal pain) Requesting physician: Anthony Berry MD Narrative: This is a 78-year-old woman with multiple medical problems and a recent ischemic stroke in December of 2023 with residual right hemiparesis and aphasia who is a poor historian with no family at the bedside. Therefore, her history is obtained primarily from review of the electronic medical record. She presented to the ER 2 days ago from [facility] for evaluation of chest pain. She had an EKG that showed findings concerning for ischemia and was sent to the ED for further evaluation. Cardiac workup has been unremarkable. Cardiology recommended no further workup and suggest this is likely musculoskeletal chest pain. She also was complaining of right-sided abdominal pain and subsequently had a CT scan of the abdomen and pelvis that showed a fecal impaction in the rectum and a thickened endometrial complex. She has been treated with laxatives, stool softeners, and enemas. She has a remote history of a laparoscopic cholecystectomy. CT also showed a dilated common duct of 17 mm increased from [address] last CT scan in 2014, which the radiologist mentions is likely not clinically significant given the normal bilirubin and alk-phos. She was admitted to the IMU and our service has been consulted by the Hospitalist for abdominal pain. Per nursing, she is no longer complaining of any pain. She is on full liquids and tolerating this. She denies any abdominal pain
--- NOTE | 2024-01-21 16:02 | PC.NURSE ---
moderate amount of hard stool after soap suds enema
--- NOTE | 2024-01-21 16:21 | PM.DS ---
DS: Admitting Diagnosis Discharge Date 01/21/24 Admitting Diagnosis 1. Chest pain 2. Abdominal pain 3. Constipation Fecal impaction 4. CVA, december 2023 5. Physical deconditioning DS: Discharge Diagnosis Discharge Diagnosis (1) Chest pain: Code(s): R07.9 - Chest pain, unspecified Status: Acute (2) Right lateral abdominal pain: Code(s): R10.9 - Unspecified abdominal pain Status: Acute (3) Hypokalemia: Code(s): E87.6 - Hypokalemia Status: Acute (4) Thickened endometrium: Code(s): R93.89 - Abnormal findings on diagnostic imaging of other specified body structures Status: Acute (5) Impacted stool in rectum: Code(s): K56.41 - Fecal impaction Status: Acute (6) Hypertension: Code(s): I10 - Essential (primary) hypertension Status: Acute Plan Acute and principal conditions 1. Chest pain 2. Abdominal pain 3. Constipation Cardiology and General surgery consulted Heart monitoring Stool softeners; Bentyl Chronic and stable conditions 1. Obesity, BMI 34 2. Hypertension. on Amlodipine 3. Chronic A-fib w/RVR. on Apixaban, Carvedilol 4. Dyslipidemia. On Statin Miscellaneous care. Code status. Full Nutrition. Heart healthy VTE prophylaxis. SCDs; Apixaban The patient presented to the emergency department for evaluation of right-sided chest pain as detailed in HPI. Labs, imaging, EKG, and all reports were personally reviewed. Initial troponin was normal and EKG was without acute ST segment elevations or significant depressions. DS: Summary Hospital Course Reason for hospitalization: 1. Chest pain 2. Abdominal pain 3. Constipation Fecal impaction 4. CVA, december 2023 5. Physical deconditioning Hospital Course: Chief Complaint: Chest pain. Narrative: This is a 78-year-old female with history of sleep apnea, hypertension, postablative hypothyroidism, hyperlipidemia, and recent stroke for which she is currently undergoing rehab at [facility] who presented to the emergency department for evaluation of chest pain. The patient is not the best historian given her expressive aphasia and some of the following is obtained via a review of her EMR as well as information provided by her daughter Kristin who was at bedside. Today she was reportedly complaining of chest pain and she was sent in for evaluation as her EKG showed findings concerning for ischemia. She was administered 3 doses of sublingual nitroglycerin prior to transfer which reportedly was of no benefit. At the time of my evaluation the patient points to her right anterior shoulder and right mid to lower quadrant as the site of her pain. She is not able to describe the pain or report any associated symptoms. She had reproducible tenderness over the right anterior chest wall on exam and also in the right mid and lower quadrant. Her appetite has not been great. She denies fever, palpitations, shortness of breath vomiting, dysuria, and diarrhea. She is being admitted in this setting for close monitoring and further workup Significant findings: WBC count of 13.6, potassium 3.2, BUN 36, creatinine 0.80, glucose 140, AST 46, ALT 40, troponin less than 0.012, lipase 164. Chest x-ray showed interstitial and airspace opacities in the bilateral lower lung zones which could be atelectasis, mild pulmonary edema, or pneumonia and cardiomegaly. CT of the abdomen and pelvis showed stool distending the rectum and a thickened endometrial complex as well as moderate intrahepatic biliary duct dilatation. The visualized portions of the lung bases demonstrate mild atelectasis. EKG showed sinus rhythm with voltage criteria for LVH, and probably old inferior myocardial infarction. Consults: General surgery: CT abdomen/pelvis showed fecal impaction and no other acute findings that would cause her abdominal pain. This could be related to constipation and her fecal impaction. Her abdominal pain has resolved and her abdominal exam
--- NOTE | 2024-01-21 16:34 | PC.NURSE ---
Report called to Marbella malhotra MARY
--- NOTE | 2024-01-21 22:22 | PC.NURSE ---
2220: EMS arrival for patient transfer. VSS and patient changed prior to discharge. Family accompanying patient.
== END 2024-01-21 22:20 | DRG 313 ==
LOC: ANHED 16:40 → ANHIMU 16:54
PROVIDERS: Emergency Medicine; Physician Assistant; Admitting Provider General Practice; Emergency Provider Emergency Medicine; Visit Provider Internal Medicine
DX: R07.89 Other chest pain (principal); I48.20 Chronic atrial fibrillation, unspecified; I69.351 Hemiplegia and hemiparesis following cerebral infarction affecting right dominant side; I82.432 Acute embolism and thrombosis of left popliteal vein; I82.452 Acute embolism and thrombosis of left peroneal vein; I82.442 Acute embolism and thrombosis of left tibial vein; K56.41 Fecal impaction; E78.5 Hyperlipidemia, unspecified; E87.6 Hypokalemia; E03.8 Other specified hypothyroidism; R93.89 Abnormal findings on diagnostic imaging of other specified body structures; I69.392 Facial weakness following cerebral infarction; I10 Essential (primary) hypertension; G47.33 Obstructive sleep apnea (adult) (pediatric); E66.01 Morbid (severe) obesity due to excess calories; D72.829 Elevated white blood cell count, unspecified; I69.398 Other sequelae of cerebral infarction; H53.9 Unspecified visual disturbance; I69.391 Dysphagia following cerebral infarction; R13.12 Dysphagia, oropharyngeal phase; I69.320 Aphasia following cerebral infarction; Z87.891 Personal history of nicotine dependence; Z68.34 Body mass index [BMI] 34.0-34.9, adult; Z79.01 Long term (current) use of anticoagulants; Z90.49 Acquired absence of other specified parts of digestive tract
CPT/HCPCS: 36415; 71046; 74177; 80053; 81003; 83690; 84484; 85025; 85027; 85610; 85730; 93005; 93306; 96374; 96375; 96376; 99285; A9270; J0500; J1170; J2270; J2405; J7030; J7042; Q9967

== ENCOUNTER 2024-01-31 19:20 | Inpatient (IN) | payer MEDICARE, OTHER, SELFPAY ==
--- NOTE | ~2024-01-31 | CT_ITS ---
EXAMINATION: CT abdomen pelvis w con DATE: 01/31/2024 20:54 INDICATION: Right lower quadrant abdominal pain and tenderness. TECHNIQUE: Computed tomography (CT) of the abdomen and pelvis was performed with 100 mL Omnipaque 350 intravenous contrast. Automated exposure control and iterative reconstruction technique were employe d. The dose-length product was 1284.01 mGy-cm. COMPARISON: CT abdomen and pelvis 05/26/2024, 01/19/24 FINDINGS: The visualized portions of the lung bases demonstrate mild atelectasis. No pleural effusion . The heart size is normal. There is. There are coronary artery calcifications. No pericardial effusi on. Again seen is moderate intrahepatic biliary duct dilatation. The common duct is dilated to 14 mm, which is stable. These findings are likely not clinically significant given the normal liver functio n tests. There are changes of cholecystectomy. The pancreas, spleen, and adrenal glands are normal. T here is cortical thinning of the kidneys. There are cysts in the kidneys measuring up to 4.4 cm in th e left. There are two 2 mm stones in left kidney. There are no dilated loops of bowel. The appendix i s normal. Aortic atherosclerosis is noted. There are no pathologically enlarged lymph nodes. There is no free intraperitoneal fluid. There are bilateral inguinal hernias containing fat. The endometrial complex is thickened to 12 mm. There is mild thoracic and lumbar spondylosis. IMPRESSION: 1. Bilateral inguinal hernias containing fat. 2. Thickened endometrial complex. The differential diagnosis includes endometrial hyperplasia, polyp, and carcinoma. Biopsy is recommended. Reviewed, dictated and finalized at location E. IMPRESSION: 1. Bilateral inguinal hernias containing fat. 2. Thickened endometrial complex. The differential diagnosis includes endometri al hyperplasia, polyp, and carcinoma. Biopsy is recommended.
--- NOTE | ~2024-01-31 | MR_ITS ---
MRI of the pelvis CLINICAL HISTORY: Right lower quadrant pain, possible uterine mass TECHNIQUE: Coronal T2-weighted and T2 fat-sat images, axial T2-weighted, T2 fat-sat, and T1 in and ou t of phase imaging, and sagittal T2-weighted imaging was performed. Following intravenous administrat ion of 19 cc MultiHance gadolinium, T1-weighted fat-sat imaging was performed in the axial and martinez l planes. FINDINGS: Uterus is retroverted. There is mild fluid distention of the endometrial cavity, without di stinct endometrial thickening. Small cervical nabothian cysts are present. No other myometrial mass c learly identified. Urinary bladder distended, but otherwise unremarkable. Neither ovary well visualized. No other adnexa l mass or pelvic mass evident. Visualized bowel loops essentially unremarkable. No pelvic ascites seen. No pelvic lymphadenopathy se en. IMPRESSION: Mild fluid distention of the endometrial cavity without distinct endometrial thickening or myometrial mass. No other significant findings. Reviewed, dictated and finalized at location . IMPRESSION: Mild fluid distention of the endometrial cavity without distinct endometrial th ickening or myometrial mass. No other significant findings.
--- NOTE | ~2024-01-31 | US_ITS ---
Pelvic ultrasound. Clinical History: Endometrial cancer Technique: Realtime transvaginal scanning of the pelvis was performed. Color flow Doppler and Doppler spectral analysis were performed. Findings: The uterus is anteverted. There is apparent marked fluid distention of the endometrial cavi ty. Endometrial lining itself is poorly delineated on this exam. No definite myometrial mass identifi ed. Neither ovary visualized. There is no evidence of free fluid in the cul de sac. Impression: Apparent marked fluid distention of the endometrial cavity. Correlate for outlet obstruction. No defi nite mass lesion appreciated on this exam, however the uterus and myometrium, as well as the endometr ial lining, are poorly evaluated overall. If further imaging evaluation is desired, then a pre and po stcontrast pelvic MRI would be recommended to further assess for underlying mass. Otherwise, consider hysteroscopy as indicated. Reviewed, dictated and finalized at [facility]. Impression: Apparent marked fluid distention of the endometrial cavity. Correlate for outle t obstruction. No definite mass lesion appreciated on this exam, however the ut erus and myometrium, as well as the endometrial lining, are poorly evaluated ov erall. If further imaging evaluation is desired, then a pre and postcontrast pe lvic MRI would be recommended to further assess for underlying mass. Otherwise, consider hysteroscopy as indicated.
[2024-01-31 19:26] VITALS: BP 165/71; PULSE 71; RESP 18; TEMP 36.6; O2SAT 100
--- NOTE | 2024-01-31 19:45 | ED.ABDPAIN ---
HPI - Abdominal Pain General Chief Complaint: Abdominal Pain Stated Complaint: abd pain Time Seen by Provider: 01/31/24 19:22 History of Present Illness HPI narrative: Patient is a 78-year-old female with a history of CVA, hypertension, hyperlipidemia, DVT on Eliquis presenting of abdominal pain. Patient's daughters at bedside and helps with the history. Patient had a stroke last month which left her with right-sided deficits as well as expressive aphasia. She has been at rehab and today was complaining of right lower quadrant pain. Patient's daughter states that she was having right-sided abdominal pain a few weeks ago which is related to constipation. States that she had a fecal disimpaction and has since been having daily bowel movements. She had 1 earlier today and states was normal. No nausea or vomiting, dysuria, hematuria. No chest pain, shortness of breath, cough, fevers. Related Data Home Medications Medication Instructions Recorded Confirmed apixaban 5 mg tablet 5 mg PO Q12H 01/02/24 02/05/24 aspirin 81 mg chewable tablet 81 mg PO DAILY 01/02/24 02/05/24 carvedilol 25 mg tablet 25 mg PO Q12H 01/02/24 02/05/24 hydrochlorothiazide 25 mg tablet 25 mg PO DAILY 01/02/24 02/05/24 levothyroxine 200 mcg tablet 200 mcg PO DAILY 01/02/24 02/05/24 rosuvastatin 20 mg tablet 20 mg PO DAILY 01/02/24 02/05/24 vitamin A 3,000 mcg (10,000 unit) 3,000 mcg PO DAILY 01/02/24 02/05/24 capsule amlodipine 10 mg tablet 10 mg PO DAILY 01/10/24 02/05/24 Allergies Allergy/AdvReac Type Severity Reaction Status Date / Time No Known Allergies Allergy Verified 02/01/24 16:53 Review of Systems Review of Systems: All systems reviewed & are unremarkable except as noted in HPI and below PMFSH Past Medical History Medical History Acute ischemic left MCA stroke (12/2023) With residual right hemiparesis and aphasia. Deep venous thrombosis Hyperlipidemia Hypertension Hypothyroidism Postablative hypothyroid Obstructive sleep apnea with obesity hypoventilation Surgical History Surgical History History of cholecystectomy Social History Social History Social History: The patient lives with her daughter in [facility]. [place] visiting family members. She has 2 biologic daughters and 1 biologic son and multiple step children. Prior to her stroke she occasionally ambulated with a cane and she was otherwise independent with activities of daily living. She smoked 1 pack of cigarettes per day from the time she was a teenager until approximately 30 years ago. She usually drink a glass of wine a night. She denies history of illicit substance use. Healthcare power of sports attorney: Tanvi Medina (daughter). Code status: Full code. Smoking packs per day: 1 Smoking cigarettes per day: 20.0 Years smoked: 30 Smoking pack-years: 30.00 Smoking status: Former smoker Alcohol intake: never Alcohol use details: A glass of wine a night Substance use: never Substance use type: does not use Do You Feel Safe in your Home?: Yes Lack of Transportation: No Lack of Food: Never True Current Housing: I Have Housing Concerned About Future Housing: No Difficulty Paying Gas/Electric Bills: No Difficulty Paying for Meds: No Currently Unemployed: No Education: Don't Know Difficulty w/ Childcare or Family Care: No Occupation/Education: retired 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 EYES: PERRLA and EOMI. ENT: Mucous membranes tacky NECK: Supple. CHEST: Clear to auscultation. No respirato
[2024-01-31] MEDS: HYDROmorphone HCL INJ (*CRX) 1 MG/ML SYR 0.5 MG IV PUSH (20:08)
[2024-01-31] MEDS: SODIUM CHLORIDE 0.9% IV 1,000 ML 999 ML IV CONT ×2 (20:08→23:29)
[2024-01-31 20:13] LABS: Basophils Percent Auto 0.3 % (0.2-1.2); Eosinophils Absolute Auto 0.2 K/mm3 (0-0.3); Eosinophils Percent Auto 1.6 % (0-4.4); Hematocrit 40.8 % (37.0-47.0); Hemoglobin 13.6 g/dL (12.0-15.0); Immature Granulocyte Absolute 0.03 K/mm3 (0.00-0.031); Immature Granulocyte Percent A 0.3 % (0-0.5); Lymphocytes Absolute Auto 2.54 K/mm3 (0.9-3.2); Lymphocytes Percent Auto 22.1 % (18.3-44.2); Mean Corpuscular HGB Conc 33.3 g/dl (32-36); Mean Corpuscular Hemoglobin 30.8 pg (26-34); Mean Corpuscular Volume 92.3 fl (80-100); Mean Platelet Volume 11.9 fl (7.4-10.4); Monocytes Absolute Auto 0.7 K/mm3 (0.1-0.6); Monocytes Percent Auto 5.7 % (2.6-8.5); Neutrophils Absolute Auto 8.1 K/mm3 (1.3-6.7); Platelet Count Result 216 k/mm3 (150-375); Red Blood Count 4.42 M/mm3 (4.2-5.4); Red Cell Distribution Width 13.2 % (11.5-14.5); White Blood Count 11.5 K/mm3 (4.5-10.0)
[2024-01-31 20:27] LABS: Alanine Aminotransferase 28 U/L (6-35); Albumin Level 4.2 g/dL (3.5-5.1); Alkaline Phosphatase 100 U/L (38-126); Anion Gap 10 mmol/L (4-12); Aspartate Amino Transferase 32 U/L (14-36); Bilirubin,Total 0.7 mg/dL (0.2-1.3); Blood Urea Nitrogen 29 mg/dL (7-17); Calcium 9.4 mg/dL (8.4-10.2); Carbon Dioxide 27 mmol/L (22-30); Chloride 101 mmol/L (98-107); Estimated CRCL calculation 55 ml/min; Estimated Glomerular Filt Rate > 60; Glucose 128 mg/dL (65-110); Lipase 211 U/L (23-300); Potassium 4.1 mmol/L (3.4-5.0); Sodium 138 mmol/L (137-145)
[2024-01-31 20:59] LABS: Add Urine Microscopic? YES; Appearance Urine Cloudy (Clear); Bacteria Urine 4+ /hpf; Bilirubin Urine Negative (Negative); Blood Urine Non-Hemolyzed Trace (Negative); Budding Yeast Urine Present /hpf; Color Urine Yellow (Yellow); Glucose Urine UA Negative (Negative); Ketones Urine Negative (Negative); Leukocyte Esterase Ur 3+ LEU/UL (Negative); Mucus Urine Present /lpf; Need Manual Microscopic Reviewed; Nitrate Urine Positive (Negative); Protein Urine Trace mg/dL (Negative); Specific Grav Ur 1.018 (1.001-1.035); Squamous Epithelial Cell Urine None Seen /hpf (Few); WBC Urine 21-50 /hpf (0-3)
[2024-01-31 21:10] VITALS: BP 150/62; PULSE 90; RESP 18; O2SAT 99
[2024-01-31 22:01] VITALS: BP 140/68; PULSE 73; RESP 18; O2SAT 99
[2024-01-31] MEDS: cefTRIAXone 2 GM/NS 100 ML 2 GM/100 ML BAG IVPB (22:01)
--- NOTE | 2024-01-31 22:49 | PM.IMHP ---
H&P: HPI History of Present Illness Date/Time: 01/31/24 22:49 Chief Complaint: generalized pain Narrative: This is a 78-year-old female with past medical history significant for obesity, DVT, dyslipidemia, hypertension, hypothyroidism, obstructive sleep apnea, acute ischemic stroke of left MCA territory. Patient has been at rehabilitation and was brought for evaluation of generalized pain was given Gabapentin with no improvement here patient is unable to give much history which has been obtained from daughters who are at bedside preliminary workup was significant for urinary tract infection.Patient has been admitted for further evaluation management and treatment. EXAMINATION: CT abdomen pelvis w con DATE: 01/31/2024 20:54 INDICATION: Right lower quadrant abdominal pain and tenderness. TECHNIQUE: Computed tomography (CT) of the abdomen and pelvis was performed with 100 mL Omnipaque 350 intravenous contrast. Automated exposure control and iterative reconstruction technique were employed. The dose-length product was 1284.01 mGy-cm. COMPARISON: CT abdomen and pelvis 05/26/2024, 01/19/24 FINDINGS: The visualized portions of the lung bases demonstrate mild atelectasis. No pleural effusion. The heart size is normal. There is. There are coronary artery calcifications. No pericardial effusion. Again seen is moderate intrahepatic biliary duct dilatation. The common duct is dilated to 14 mm, which is stable. These findings are likely not clinically significant given the normal liver function tests. There are changes of cholecystectomy. The pancreas, spleen, and adrenal glands are normal. There is cortical thinning of the kidneys. There are cysts in the kidneys measuring up to 4.4 cm in the left. There are two 2 mm stones in left kidney. There are no dilated loops of bowel. The appendix is normal. Aortic atherosclerosis is noted. There are no pathologically enlarged lymph nodes. There is no free intraperitoneal fluid. There are bilateral inguinal hernias containing fat. The endometrial complex is thickened to 12 mm. There is mild thoracic and lumbar spondylosis. IMPRESSION: 1. Bilateral inguinal hernias containing fat. 2. Thickened endometrial complex. The differential diagnosis includes endometrial hyperplasia, polyp, and carcinoma. Biopsy is recommended Review of Systems Review of Systems: ROS unobtainable: Yes unobtainable due to mental status ( lethargy) PMFSH Past Medical History Medical History Acute ischemic left MCA stroke (12/2023) With residual right hemiparesis and aphasia. Deep venous thrombosis Hyperlipidemia Hypertension Hypothyroidism Postablative hypothyroid Obstructive sleep apnea with obesity hypoventilation Surgical History Surgical History History of cholecystectomy Social History Social History Social History: The patient lives with her daughter in [facility]. They have been back in the [facility] for couple of months visiting family members. She has 2 biologic daughters and 1 biologic son and multiple step children. Prior to her stroke she occasionally ambulated with a cane and she was otherwise independent with activities of daily living. She smoked 1 pack of cigarettes per day from the time she was a teenager until approximately 30 years ago. She usually drink a glass of wine a night. She denies history of illicit substance use. Healthcare power of market president: Tanvi Medina (daughter). Code status: Full code. Smoking packs per day: 1 Smoking cigarettes per day: 20.0 Years smoked: 30 Smoking pack-years: 30.00 Smoking status: Former smoker Alcohol intake: never Alcohol use details: A glass of wine a night Substance use: never Substance use type: does not use Do You Feel Safe in your Home?: Yes Lack of Transportation: No
[2024-02-01] VITALS (7 sets, daily range): BP systolic 111–151; BP diastolic 44–59; PULSE 64–83; RESP 14–20; TEMP 36.2–37.2; O2SAT 91–100; BMI 35.7
[2024-02-01] MEDS: HYDROmorphone HCL INJ (*CRX) 1 MG/ML SYR IV PUSH (01:30)
--- NOTE | 2024-02-01 02:49 | ADMGEN ---
This patient, Carol Rosa, was admitted to 3 Med Surg Room 315-02. Patient/family oriented to hospital policies and general routines including ID bracelet, bed and alarms, visiting hours, pain management, procedures, bathroom and other care routines, personal items, smoking policy, room service/diet, and visiting hours. Information on how to activate the Rapid Response Team has been discussed. Patient/Family are encouraged to report perceived risks to care and to ask questions if they do not understand what they are told or what they should do.
[2024-02-01] MEDS: HYDROmorphone HCL INJ (*CRX) 1 MG/ML SYR 0.5 MG IV PUSH (05:48)
[2024-02-01] MEDS: LEVOTHYROXINE SODIUM 100 MCG TABLET 200 MCG PO (05:53)
[2024-02-01] MEDS: ASPIRIN 81 MG CHEWABLE TABLET PO (08:20)
[2024-02-01] MEDS: amLODIPine BESYLATE 10 MG TABLET PO (08:20)
[2024-02-01] MEDS: ROSUVASTATIN 20 MG TABLET PO (08:20)
[2024-02-01] MEDS: APIXABAN 5 MG TABLET PO ×2 (08:20→20:30)
[2024-02-01] MEDS: hydroCHLOROthiazide 25 MG TABLET PO (08:20)
[2024-02-01] MEDS: carvediloL 25 MG TABLET PO ×2 (08:20→20:29)
--- NOTE | 2024-02-01 09:12 | PM.IMPN ---
Progress Note: A&P Assessment and Plan (1) UTI (urinary tract infection): Code(s): N39.0 - Urinary tract infection, site not specified Status: Acute Assessment and Plan: Patient presented with weakness and lethargy. UA is concerning for infection. Lactic acid was 1 Patient was started on Rocephin 2 g Urine culture pending Blood cultures ordered Tylenol as needed for fever greater than 101.4 and pain (2) Right sided abdominal pain: Code(s): R10.9 - Unspecified abdominal pain Status: Acute Assessment and Plan: RLQ abdominal pain. Patient is unable to describe. Patient's daughter says that when her pain starts the patient appears in severe. CT abdomen and pelvis shows bilateral inguinal hernias containing fat as well as thickened endometrial complex. Last bowel movement was yesterday. She had two BMs which were soft. Lipase was normal Liver enzymes normal PRN oxycodone for pain (3) Thickened endometrium: Code(s): R93.89 - Abnormal findings on diagnostic imaging of other specified body structures Status: Acute Assessment and Plan: Will plan for transvaginal ultrasound during this admission Will need outpatient referral for biopsy Plan Feeding: Heart healthy Analgesia: Tylenol Thromboembolic prophylaxis: On Eliquis Ulcer prophylaxis: Not applicable Bowel regimen: MiraLax and senna Lines: PIV Antibiotics: Rocephin 2 g Disposition: Patient presents from a rehab as she was recently discharged from a hospital last after suffering a left-sided CVA, with complaints of right lower quadrant abdominal pain. Preliminary workup showed UTI. The patient was admitted for IV antibiotics. Anticipate return to rehab versus SNF discharge. PT and OT have been ordered and consult appreciated. Advance Care Plan I have confirmed that the patient's Advanced Care Plan is present, code status is documented, or surrogate decision maker is listed in patient medical record.: Yes Medication Reconciliation I have utilized all available resources to obtain, update and review the patients current medications (includes all prescriptions, OTC, herbals, cannabis, and nutritional supplements).: Yes Subjective Date/time seen: 02/01/24 09:12 Interval history: This is a 78-year-old female with past medical history significant for obesity, DVT, dyslipidemia, hypertension, hypothyroidism, obstructive sleep apnea, acute ischemic stroke of left MCA territory. She presented to the emergency room with complaints of generalized pain. 01/31: Patient is resting in bed with her daughter at the bedside. She is familiar to me from her last admission. She is from [facility] and lives with her daughter Kristin. They did come to the [facility] to visit family. 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 The patient was outside the thrombolytic window. The patient was transferred to [facility] where MRI demonstrated low volume right watershed infarcts. She was started on Eliquis. 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 From [facility] she went to [facility] for rehab. On 01/05 she came back to [place] from [facility] with complaints of low blood pressure and was found to have a UTI with bacteremia (blood cultures grew E coli). She was treated with IV antibiotics and discharged back to [facility] on 01/09. She then presented back to [place] ED on 01/18 with complaints of chest pain. She was also found to have pain to her RLQ. Her cardiac work up negative for ACS and thought to be musculoskeletal. General surgery was consulted for her abdominal pain which was thought to be from constipation and fecal impaction. She was discharged back to [facility]
[2024-02-01] MEDS: oxyCODONE HCL (*CRX) 5 MG TAB IR PO (17:02)
[2024-02-01] MEDS: SENNA/DOCUSATE SODIUM TABLET 1 TAB PO (20:30)
[2024-02-01] MEDS: cefTRIAXone 2 GM/NS 100 ML 2 GM/100 ML BAG IVPB (20:30)
[2024-02-02] MEDS: oxyCODONE HCL (*CRX) 5 MG TAB IR PO ×4 (01:37→20:49)
[2024-02-02 05:06] VITALS: BP 166/63; PULSE 80; RESP 18; TEMP 36.3; O2SAT 98
[2024-02-02] MEDS: LEVOTHYROXINE SODIUM 100 MCG TABLET 200 MCG PO (06:14)
[2024-02-02 07:04] LABS: Alanine Aminotransferase 25 U/L (6-35); Albumin Level 3.6 g/dL (3.5-5.1); Alkaline Phosphatase 86 U/L (38-126); Anion Gap 9 mmol/L (4-12); Aspartate Amino Transferase 30 U/L (14-36); Bilirubin,Total 0.7 mg/dL (0.2-1.3); Blood Urea Nitrogen 18 mg/dL (7-17); Calcium 9.1 mg/dL (8.4-10.2); Carbon Dioxide 27 mmol/L (22-30); Chloride 103 mmol/L (98-107); Estimated CRCL calculation 63 ml/min; Estimated Glomerular Filt Rate > 60; Glucose 89 mg/dL (65-110); Magnesium 1.7 mg/dL (1.6-2.3); Potassium 3.3 mmol/L (3.4-5.0); Sodium 139 mmol/L (137-145)
[2024-02-02 07:09] LABS: Basophils Absolute Auto 0.1 K/mm3 (0.0-0.1); Basophils Percent Auto 0.5 % (0.2-1.2); Eosinophils Absolute Auto 0.3 K/mm3 (0-0.3); Eosinophils Percent Auto 3.1 % (0-4.4); Hematocrit 40.2 % (37.0-47.0); Hemoglobin 12.8 g/dL (12.0-15.0); Immature Granulocyte Absolute 0.03 K/mm3 (0.00-0.031); Immature Granulocyte Percent A 0.3 % (0-0.5); Lymphocytes Absolute Auto 2.42 K/mm3 (0.9-3.2); Lymphocytes Percent Auto 25.8 % (18.3-44.2); Mean Corpuscular HGB Conc 31.8 g/dl (32-36); Mean Corpuscular Hemoglobin 30.6 pg (26-34); Mean Corpuscular Volume 96.2 fl (80-100); Mean Platelet Volume 12.6 fl (7.4-10.4); Monocytes Absolute Auto 0.7 K/mm3 (0.1-0.6); Monocytes Percent Auto 7.4 % (2.6-8.5); Neutrophils Absolute Auto 5.9 K/mm3 (1.3-6.7); Neutrophils Percent Auto 62.9 % (45.5-73.1); Platelet Count Result 190 k/mm3 (150-375); Red Blood Count 4.18 M/mm3 (4.2-5.4); Red Cell Distribution Width 13.4 % (11.5-14.5); White Blood Count 9.4 K/mm3 (4.5-10.0)
--- NOTE | 2024-02-02 07:43 | PM.IMPN ---
Progress Note: A&P Assessment and Plan (1) UTI (urinary tract infection): Code(s): N39.0 - Urinary tract infection, site not specified Status: Acute Assessment and Plan: Patient presented with weakness and lethargy. UA is concerning for infection. Lactic acid was 1 Patient was started on Rocephin 2 g Blood culture and urine culture with no growth to date Tylenol as needed for fever greater than 101.4 and pain (2) Right sided abdominal pain: Code(s): R10.9 - Unspecified abdominal pain Status: Acute Assessment and Plan: RLQ abdominal pain. Patient is unable to describe. Patient's daughter says that when her pain starts the patient appears in severe. CT abdomen and pelvis shows bilateral inguinal hernias containing fat as well as thickened endometrial complex. Last bowel movement was yesterday. She had two BMs which were soft. 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 I spoke with her daughter in she was recently started on mirtazapine and gabapentin at [facility]. She had only received 1 day of treatment prior to returning to the hospital. I had spoke with our neurologist Dr. Carbajal and while she feels right lower quadrant pain is and atypical location for poststroke neuropathy, she would also recommend gabapentin or Lyrica. (3) Thickened endometrium: Code(s): R93.89 - Abnormal findings on diagnostic imaging of other specified body structures Status: Acute Assessment and Plan: Will plan for transvaginal ultrasound during this admission Will need outpatient referral for biopsy Plan Feeding: Heart healthy Analgesia: Tylenol Thromboembolic prophylaxis: On Eliquis Ulcer prophylaxis: Not applicable Bowel regimen: MiraLax and senna Lines: PIV Antibiotics: Rocephin 2 g Disposition: Patient presents from a rehab as she was recently discharged from a hospital last after suffering a left-sided CVA, with complaints of right lower quadrant abdominal pain. Preliminary workup showed UTI. The patient was admitted for IV antibiotics. Anticipate return to rehab versus SNF discharge. PT and OT have been ordered and consult appreciated. Advance Care Plan I have confirmed that the patient's Advanced Care Plan is present, code status is documented, or surrogate decision maker is listed in patient medical record.: Yes Medication Reconciliation I have utilized all available resources to obtain, update and review the patients current medications (includes all prescriptions, OTC, herbals, cannabis, and nutritional supplements).: Yes Subjective Date/time seen: 02/02/24 07:43 Interval history: This is a 78-year-old female with past medical history significant for obesity, DVT, dyslipidemia, hypertension, hypothyroidism, obstructive sleep apnea, acute ischemic stroke of left MCA territory. She presented to the emergency room with complaints of generalized pain. 01/31: Patient is resting in bed with her daughter at the bedside. She is familiar to me from her last admission. She is from [facility] and lives with her daughter Kristin. They did come to the [facility] to visit family. 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 The patient was outside the thrombolytic window. The patient was transferred to [facility] where MRI demonstrated low volume right watershed infarcts. She was started on Eliquis. 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 From [facility] she went to [facility] for rehab. On 01/05 she came back to [place] from [facility] with complaints of low blood pressure and was found to have a UTI with bacteremia (blood cultures grew
[2024-02-02 08:00] VITALS: O2SAT 97
[2024-02-02 08:50] VITALS: PULSE 65
[2024-02-02] MEDS: ROSUVASTATIN 20 MG TABLET PO (08:50)
[2024-02-02] MEDS: ASPIRIN 81 MG CHEWABLE TABLET PO (08:50)
[2024-02-02] MEDS: hydroCHLOROthiazide 25 MG TABLET PO (08:50)
[2024-02-02] MEDS: APIXABAN 5 MG TABLET PO ×2 (08:50→20:51)
[2024-02-02] MEDS: amLODIPine BESYLATE 10 MG TABLET PO (08:50)
[2024-02-02] MEDS: carvediloL 25 MG TABLET PO ×2 (08:50→20:52)
[2024-02-02] MEDS: polyethylene glycoL 3350 17 GM POWD.PACK PO (08:51)
[2024-02-02 14:00] VITALS: BP 152/62; PULSE 82; RESP 16; TEMP 36.3; O2SAT 96
[2024-02-02] MEDS: GABAPENTIN 300 MG CAPSULE PO ×2 (14:00→17:32)
[2024-02-02] MEDS: POTASSIUM CHLORIDE 20 MEQ ER TABLET 40 MEQ PO (14:04)
[2024-02-02 20:06] VITALS: BP 139/59; PULSE 71; RESP 18; TEMP 36.4; O2SAT 94
[2024-02-02] MEDS: cefTRIAXone 2 GM/NS 100 ML 2 GM/100 ML BAG IVPB (20:50)
[2024-02-02] MEDS: MIRTAZAPINE 15 MG TABLET PO (20:51)
[2024-02-02] MEDS: SENNA/DOCUSATE SODIUM TABLET 1 TAB PO (20:51)
[2024-02-02 20:52] VITALS: PULSE 71
[2024-02-03] MEDS: LEVOTHYROXINE SODIUM 100 MCG TABLET 200 MCG PO (05:29)
[2024-02-03 06:00] VITALS: BP 127/51; PULSE 67; RESP 16; TEMP 36.3; O2SAT 94
[2024-02-03 06:25] LABS: Basophils Percent Auto 0.5 % (0.2-1.2); Eosinophils Absolute Auto 0.3 K/mm3 (0-0.3); Eosinophils Percent Auto 3.8 % (0-4.4); Hemoglobin 13.3 g/dL (12.0-15.0); Immature Granulocyte Absolute 0.01 K/mm3 (0.00-0.031); Immature Granulocyte Percent A 0.1 % (0-0.5); Lymphocytes Absolute Auto 2.71 K/mm3 (0.9-3.2); Lymphocytes Percent Auto 34.3 % (18.3-44.2); Mean Corpuscular HGB Conc 32.4 g/dl (32-36); Mean Corpuscular Hemoglobin 30.4 pg (26-34); Mean Corpuscular Volume 93.6 fl (80-100); Monocytes Absolute Auto 0.6 K/mm3 (0.1-0.6); Monocytes Percent Auto 7.7 % (2.6-8.5); Neutrophils Absolute Auto 4.2 K/mm3 (1.3-6.7); Neutrophils Percent Auto 53.6 % (45.5-73.1); Platelet Count Result 188 k/mm3 (150-375); Red Blood Count 4.38 M/mm3 (4.2-5.4); Red Cell Distribution Width 13.2 % (11.5-14.5); White Blood Count 7.9 K/mm3 (4.5-10.0)
[2024-02-03 06:41] LABS: Alanine Aminotransferase 24 U/L (6-35); Albumin Level 3.7 g/dL (3.5-5.1); Alkaline Phosphatase 87 U/L (38-126); Anion Gap 8 mmol/L (4-12); Aspartate Amino Transferase 29 U/L (14-36); Bilirubin,Total 0.7 mg/dL (0.2-1.3); Blood Urea Nitrogen 16 mg/dL (7-17); Calcium 9.3 mg/dL (8.4-10.2); Carbon Dioxide 26 mmol/L (22-30); Chloride 103 mmol/L (98-107); Estimated CRCL calculation 63 ml/min; Estimated Glomerular Filt Rate > 60; Glucose 109 mg/dL (65-110); Magnesium 1.8 mg/dL (1.6-2.3); Potassium 3.9 mmol/L (3.4-5.0); Sodium 137 mmol/L (137-145)
--- NOTE | 2024-02-03 07:45 | PM.IMPN ---
Progress Note: A&P Assessment and Plan (1) UTI (urinary tract infection): Code(s): N39.0 - Urinary tract infection, site not specified Status: Acute Assessment and Plan: Patient presented with weakness and lethargy. UA is concerning for infection. Lactic acid was 1 Patient was started on Rocephin 2 g Blood culture with NGTD Urine culture is growing e-coli and klebsiella pneumoniae sensitive to rocephin Today is day 3 of IV antibiotics and will complete treatment for uncomplicated cystits Tylenol as needed for fever greater than 101.4 and pain (2) Right sided abdominal pain: Code(s): R10.9 - Unspecified abdominal pain Status: Acute Assessment and Plan: RLQ abdominal pain. Patient is unable to describe. Patient's daughter says that when her pain starts the patient appears in severe. CT abdomen and pelvis shows bilateral inguinal hernias containing fat as well as thickened endometrial complex. Last bowel movement was yesterday. She had two BMs which were soft. 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 I spoke with her daughter in she was recently started on mirtazapine and gabapentin at [facility]. She had only received 1 day of treatment prior to returning to the hospital. I had spoke with our neurologist Dr. Carbajal and while she feels right lower quadrant pain is an typical location for poststroke neuropathy, she would also recommend gabapentin or Lyrica. GI is consulted today for further work up of RLQ pain. (3) Thickened endometrium: Code(s): R93.89 - Abnormal findings on diagnostic imaging of other specified body structures Status: Acute Assessment and Plan: Transvaginal ultrasound has been completed and shows fluid distention in endometrial cavity, correlate for outlet obstruction. Spoke with OB-CATERING CHEF to see if this is something that could be contributing to her pain. Could consider MRI Will need outpatient referral for biopsy Plan Feeding: Heart healthy Analgesia: Tylenol Thromboembolic prophylaxis: On Eliquis Ulcer prophylaxis: Not applicable Bowel regimen: MiraLax and senna Lines: PIV Antibiotics: Rocephin 2 g Disposition: Patient presents from a rehab as she was recently discharged from a hospital last after suffering a left-sided CVA, with complaints of right lower quadrant abdominal pain. UTI with ecoli and klebsellia is pansensitive. Will transition to oral Augmentin. GI has been consulted to see her regarding this unclear RLQ abdominal pain. Anticipate return to rehab versus SNF discharge. PT and OT have been ordered and consult appreciated. Advance Care Plan I have confirmed that the patient's Advanced Care Plan is present, code status is documented, or surrogate decision maker is listed in patient medical record.: Yes Medication Reconciliation I have utilized all available resources to obtain, update and review the patients current medications (includes all prescriptions, OTC, herbals, cannabis, and nutritional supplements).: Yes Subjective Date/time seen: 02/03/24 07:45 Interval history: This is a 78-year-old female with past medical history significant for obesity, DVT, dyslipidemia, hypertension, hypothyroidism, obstructive sleep apnea, acute ischemic stroke of left MCA territory. She presented to the emergency room with complaints of generalized pain. 01/31: Patient is resting in bed with her daughter at the bedside. She is familiar to me from her last admission. She is from [facility] and lives with her daughter Kristin. They did come to the [facility] to visit family. 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 The patient was outside the throm
[2024-02-03] MEDS: polyethylene glycoL 3350 17 GM POWD.PACK PO (09:27)
[2024-02-03] MEDS: ASPIRIN 81 MG CHEWABLE TABLET PO (09:28)
[2024-02-03] MEDS: APIXABAN 5 MG TABLET PO ×2 (09:29→22:07)
[2024-02-03] MEDS: GABAPENTIN 300 MG CAPSULE PO ×3 (09:29→17:54)
[2024-02-03] MEDS: ROSUVASTATIN 20 MG TABLET PO (09:29)
[2024-02-03] MEDS: hydroCHLOROthiazide 25 MG TABLET PO (09:30)
[2024-02-03 09:31] VITALS: PULSE 73
[2024-02-03] MEDS: carvediloL 25 MG TABLET PO ×2 (09:31→22:06)
[2024-02-03] MEDS: amLODIPine BESYLATE 10 MG TABLET PO (09:31)
--- NOTE | 2024-02-03 10:12 | PCOTNOTE ---
Patient declined to participate at this time. Patient stated she is having increased pain and so uncomfortable. Therapist notified and RN. Will try back at a later time.
--- NOTE | 2024-02-03 12:02 | P.CONGI_ITS ---
I, Alex Saucedo MD, have provided a substantive portion of the care of this patient and discussed the patient with my Nurse Practitioner. I have reviewed any new relevant radiographic and laboratory results including medications. I agree with her documentation as noted below.?I personally performed the medical decision making and much of the history and exam for this encounter. briefly she has multiple comorbidities, recently had stroke and taking blood thinners. Here with recurrent lower abdominal pain, diagnosed with UTI and CT scan showed endometrial thickening, also had episode of constipation. We can offer to do colonoscopy as outpatient once safe enough to hold anticoagulation. Advance diet. Assessment and Plan Assessment and plan (1) RLQ abdominal pain: Code(s): R10.31 - Right lower quadrant pain Status: Acute (2) Constipation: Qualifiers: Constipation type: drug induced constipation Qualified Code(s): K59.03 - Drug induced constipation Code(s): K59.00 - Constipation, unspecified Status: Acute (3) Heme positive stool: Code(s): R19.5 - Other fecal abnormalities Status: Acute (4) Intrahepatic bile duct dilation: Code(s): K83.8 - Other specified diseases of biliary tract Status: Acute Plan 1. Right lower quadrant abdominal pain /Constipation/ heme-positive stools: Per patient's last colonoscopy greater than 10 years ago was normal. Family history negative for CRC or IBD. Patient with sharp recurrent right lower quadrant pain that has been occurring more frequently since her stroke in December. Pain is stabbing 10/10 pain, worse in afternoons and sometimes at night. No clear relationship to bowel movements. Multiple CTs have been done and showed no findings to explain symptoms. She does have bilateral fat containing inguinal hernias. Recent CT showed fluid distention in the endometrial cavity of unknown origin. she had a positive fecal occult blood 01/08/2024. H&H has remained stable. No signs of active GI bleeding. Prior history of constipation likely secondary to medications. DDX: Constipation, intestinal gas pain, gynecologic pathology * Trial of simethicone a few times daily for possible gas pain * To consider pelvic MRI to further evaluate fluid in pelvis seen on ultrasound and thickened endometrium on CT, prior to pursuing colonoscopy * discussed the possibility of outpatient colonoscopy with patient and daughter but colonoscopy would only be considered as a last option as it will be difficult to arrange transportation and bowel prep from her rehab facility and given recent stroke she is very high risk for endoscopy especially considering she would have to hold her anticoagulation prior to scope * Continue MiraLax daily to avoid constipation * continue supportive care with pain management 2. Intrahepatic biliary ductal dilatation: Moderate intrahepatic biliary duct dilatation with common duct dilated to [address], unchanged. Normal LFTs. * Likely not clinically significant given normal LFTs * No further workup indicated at this time Thank you very much for allowing me to share in the care this very nice patient. This report may have been done utilizing a voice recognition system. Attempts have been made to correct errors. However, there may be uncorrected grammatical, spelling, and recognition errors present. GI Consult Note Consult date/time: 02/03/24 12:02 Reason for consult: RLQ pain HPI: Carol Rosa is a 78 year old female with past medical history significant for obesity, DVT,
--- NOTE | 2024-02-03 12:02 | WPDGICN ---
Assessment and Plan Assessment and plan (1) RLQ abdominal pain: Code(s): R10.31 - Right lower quadrant pain Status: Acute (2) Constipation: Qualifiers: Constipation type: drug induced constipation Qualified Code(s): K59.03 - Drug induced constipation Code(s): K59.00 - Constipation, unspecified Status: Acute (3) Heme positive stool: Code(s): R19.5 - Other fecal abnormalities Status: Acute (4) Intrahepatic bile duct dilation: Code(s): K83.8 - Other specified diseases of biliary tract Status: Acute Plan 1. Right lower quadrant abdominal pain /Constipation/ heme-positive stools: Per patient's last colonoscopy greater than 10 years ago was normal. Family history negative for CRC or IBD. Patient with sharp recurrent right lower quadrant pain that has been occurring more frequently since her stroke in December. Pain is stabbing 10/10 pain, worse in afternoons and sometimes at night. No clear relationship to bowel movements. Multiple CTs have been done and showed no findings to explain symptoms. She does have bilateral fat containing inguinal hernias. Recent CT showed fluid distention in the endometrial cavity of unknown origin. she had a positive fecal occult blood 01/08/2024. H&H has remained stable. No signs of active GI bleeding. Prior history of constipation likely secondary to medications. DDX: Constipation, intestinal gas pain, gynecologic pathology Trial of simethicone a few times daily for possible gas pain To consider pelvic MRI to further evaluate fluid in pelvis seen on ultrasound and thickened endometrium on CT, prior to pursuing colonoscopy discussed the possibility of outpatient colonoscopy with patient and daughter but colonoscopy would only be considered as a last option as it will be difficult to arrange transportation and bowel prep from her rehab facility and given recent stroke she is very high risk for endoscopy especially considering she would have to hold her anticoagulation prior to scope Continue MiraLax daily to avoid constipation continue supportive care with pain management 2. Intrahepatic biliary ductal dilatation: Moderate intrahepatic biliary duct dilatation with common duct dilated to [address], unchanged. Normal LFTs. Likely not clinically significant given normal LFTs No further workup indicated at this time Thank you very much for allowing me to share in the care this very nice patient. This report may have been done utilizing a voice recognition system. Attempts have been made to correct errors. However, there may be uncorrected grammatical, spelling, and recognition errors present. GI Consult Note Consult date/time: 02/03/24 12:02 Reason for consult: RLQ pain HPI: Carol Rosa is a 78 year old female with past medical history significant for obesity, DVT, dyslipidemia, hypertension, hypothyroidism, obstructive sleep apnea, cholecystectomy, and acute ischemic stroke of left MCA territory. She has been at rehabilitation and was brought for evaluation of generalized pain. She was given Gabapentin with no improvement. She presented to the ER on 01/31/2024 with complaints of weakness and lethargy and was found to have a UTI. She was admitted for antibiotic treatment. GI was consulted for right lower quadrant pain. Patient was accompanied by her daughter Kristin throughout the entire visit who also help provide subjective information and history. She reports right lower quadrant abdominal pain that is fairly recurring since her stroke in December. The pain is described as sharp and stabbing, rated as 10/10 in severity at times. It tends to occur a few hours after eating, usually starting in the afternoon around 3:30 PM, but sometimes also occurs at night. Bowel movements do not seem to affect the pain. Her appetite has been okay. She has been having some constipation issues but reports improvement prior to admission. She is currently walker
[2024-02-03 14:00] VITALS: BP 127/51; PULSE 67; RESP 20; TEMP 35.8; O2SAT 97
[2024-02-03] MEDS: SIMETHICONE 125 MG CHEW TAB PO (17:54)
[2024-02-03 18:46] LABS: IFOB Positive Control Positive; Immunochemical Fecal Occult Bl Negative (N)
[2024-02-03 20:00] VITALS: O2SAT 92
[2024-02-03 20:45] VITALS: BP 150/61; PULSE 80; RESP 20; TEMP 36.4; O2SAT 92
[2024-02-03] MEDS: cefTRIAXone 2 GM/NS 100 ML 2 GM/100 ML BAG IVPB (22:06)
[2024-02-03] MEDS: MIRTAZAPINE 15 MG TABLET PO (22:07)
[2024-02-03] MEDS: SENNA/DOCUSATE SODIUM TABLET 1 TAB PO (22:07)
[2024-02-04] MEDS: oxyCODONE HCL (*CRX) 5 MG TAB IR PO (01:41)
[2024-02-04 04:55] VITALS: BP 130/60; PULSE 69; RESP 20; TEMP 36.3; O2SAT 93
[2024-02-04] MEDS: LEVOTHYROXINE SODIUM 100 MCG TABLET 200 MCG PO (06:22)
[2024-02-04 06:54] LABS: Basophils Percent Auto 0.5 % (0.2-1.2); Eosinophils Absolute Auto 0.2 K/mm3 (0-0.3); Eosinophils Percent Auto 2.3 % (0-4.4); Hematocrit 39.9 % (37.0-47.0); Hemoglobin 12.9 g/dL (12.0-15.0); Immature Granulocyte Absolute 0.01 K/mm3 (0.00-0.031); Immature Granulocyte Percent A 0.1 % (0-0.5); Lymphocytes Absolute Auto 2.56 K/mm3 (0.9-3.2); Lymphocytes Percent Auto 31.4 % (18.3-44.2); Mean Corpuscular HGB Conc 32.3 g/dl (32-36); Mean Corpuscular Hemoglobin 30.3 pg (26-34); Mean Corpuscular Volume 93.7 fl (80-100); Mean Platelet Volume 12.1 fl (7.4-10.4); Monocytes Absolute Auto 0.6 K/mm3 (0.1-0.6); Monocytes Percent Auto 7.9 % (2.6-8.5); Neutrophils Absolute Auto 4.7 K/mm3 (1.3-6.7); Neutrophils Percent Auto 57.8 % (45.5-73.1); Platelet Count Result 177 k/mm3 (150-375); Red Blood Count 4.26 M/mm3 (4.2-5.4); White Blood Count 8.2 K/mm3 (4.5-10.0)
[2024-02-04 07:06] LABS: Alanine Aminotransferase 21 U/L (6-35); Albumin Level 3.6 g/dL (3.5-5.1); Alkaline Phosphatase 77 U/L (38-126); Anion Gap 9 mmol/L (4-12); Aspartate Amino Transferase 25 U/L (14-36); Bilirubin,Total 0.8 mg/dL (0.2-1.3); Blood Urea Nitrogen 16 mg/dL (7-17); Calcium 9.3 mg/dL (8.4-10.2); Carbon Dioxide 26 mmol/L (22-30); Chloride 101 mmol/L (98-107); Estimated CRCL calculation 63 ml/min; Estimated Glomerular Filt Rate > 60; Glucose 101 mg/dL (65-110); Magnesium 1.8 mg/dL (1.6-2.3); Sodium 136 mmol/L (137-145)
[2024-02-04] MEDS: hydroCHLOROthiazide 25 MG TABLET PO (09:13)
[2024-02-04] MEDS: ASPIRIN 81 MG CHEWABLE TABLET PO (09:13)
[2024-02-04] MEDS: amLODIPine BESYLATE 10 MG TABLET PO (09:13)
[2024-02-04] MEDS: APIXABAN 5 MG TABLET PO (09:13)
[2024-02-04 09:14] VITALS: PULSE 64
[2024-02-04] MEDS: carvediloL 25 MG TABLET PO (09:14)
[2024-02-04] MEDS: ROSUVASTATIN 20 MG TABLET PO (09:14)
[2024-02-04] MEDS: SIMETHICONE 125 MG CHEW TAB PO ×2 (09:14→12:43)
[2024-02-04] MEDS: polyethylene glycoL 3350 17 GM POWD.PACK PO (09:15)
[2024-02-04] MEDS: GABAPENTIN 300 MG CAPSULE PO ×2 (09:15→12:43)
[2024-02-04 13:26] LABS: SARS-CoV-2 RNA PCR Negative (Negative)
--- NOTE | 2024-02-04 13:27 | PM.DS ---
DS: Admitting Diagnosis Discharge Date 02/03 Admitting Diagnosis Right lower quadrant abdominal pain DS: Discharge Diagnosis Discharge Diagnosis (1) UTI (urinary tract infection): Code(s): N39.0 - Urinary tract infection, site not specified Status: Acute Assessment and Plan: Patient presented with weakness and lethargy. UA is concerning for infection. Lactic acid was 1 Patient was started on Rocephin 2 g Blood culture with NGTD Urine culture is growing e-coli and klebsiella pneumoniae sensitive to rocephin Today is day 3 of IV antibiotics and will complete treatment for uncomplicated cystits Tylenol as needed for fever greater than 101.4 and pain (2) Right sided abdominal pain: Code(s): R10.9 - Unspecified abdominal pain Status: Acute Assessment and Plan: RLQ abdominal pain. Patient is unable to describe. Patient's daughter says that when her pain starts the patient appears in severe. CT abdomen and pelvis shows bilateral inguinal hernias containing fat as well as thickened endometrial complex. Last bowel movement was yesterday. She had two BMs which were soft. 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 I spoke with her daughter in she was recently started on mirtazapine and gabapentin at [facility]. She had only received 1 day of treatment prior to returning to the hospital. I had spoke with our neurologist Dr. Carbajal and while she feels right lower quadrant pain is an typical location for poststroke neuropathy, she would also recommend gabapentin or Lyrica. GI is consulted today for further work up of RLQ pain. (3) Thickened endometrium: Code(s): R93.89 - Abnormal findings on diagnostic imaging of other specified body structures Status: Acute Assessment and Plan: Transvaginal ultrasound has been completed and shows fluid distention in endometrial cavity, correlate for outlet obstruction. Spoke with OB[facility]EVALUATION MANAGER to see if this is something that could be contributing to her pain. Could consider MRI Will need outpatient referral for biopsy Plan Feeding: Heart healthy Analgesia: Tylenol Thromboembolic prophylaxis: On Eliquis Ulcer prophylaxis: Not applicable Bowel regimen: MiraLax and senna Lines: PIV Antibiotics: Rocephin 2 g Disposition: Patient presents from a rehab as she was recently discharged from a hospital last after suffering a left-sided CVA, with complaints of right lower quadrant abdominal pain. UTI with ecoli and klebsellia is pansensitive. Will transition to oral Augmentin. GI has been consulted to see her regarding this unclear RLQ abdominal pain. Anticipate return to rehab versus SNF discharge. PT and OT have been ordered and consult appreciated. Advance Care Plan I have confirmed that the patient's Advanced Care Plan is present, code status is documented, or surrogate decision maker is listed in patient medical record.: Yes Medication Reconciliation I have utilized all available resources to obtain, update and review the patients current medications (includes all prescriptions, OTC, herbals, cannabis, and nutritional supplements).: Yes DS: Summary Hospital Course Reason for hospitalization: UTI Hospital Course: This is a 78-year-old female with past medical history significant for obesity, DVT, dyslipidemia, hypertension, hypothyroidism, obstructive sleep apnea, acute ischemic stroke of left MCA territory. She presented to the emergency room with complaints of generalized pain. She was found have a UTI for which she received IV antibiotics. Blood cultures were negative. Her right lower quadrant pain was worked up with a GI consult for which they essentially recommended adding simethicone. 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 CT imaging and also sounded endometrial mass on last admission and again on this admission.
[2024-02-04 14:00] VITALS: BP 128/74; PULSE 67; RESP 14; TEMP 36.7; O2SAT 100
--- NOTE | 2024-02-04 16:56 | WPDGIPROGNO ---
Progress Note: A&P Assessment and Plan (1) RLQ abdominal pain: Code(s): R10.31 - Right lower quadrant pain Status: Acute Assessment and Plan: she is already feeling better and plan is to discharge to SNF offer to do colonoscopy when safe enough to hold anticoagulation (2) Constipation: Qualifiers: Constipation type: drug induced constipation Qualified Code(s): K59.03 - Drug induced constipation Code(s): K59.00 - Constipation, unspecified Status: Acute (3) Heme positive stool: Code(s): R19.5 - Other fecal abnormalities Status: Acute (4) Thickened endometrium: Code(s): R93.89 - Abnormal findings on diagnostic imaging of other specified body structures Status: Acute Assessment and Plan: will follow-up with architectural designer conmpleted MRI (5) CVA (cerebral vascular accident): Code(s): I63.9 - Cerebral infarction, unspecified Status: Acute Assessment and Plan: on blood thinner (6) Aphasia as late effect of stroke: Code(s): I69.320 - Aphasia following cerebral infarction Status: Acute Subjective Date/time seen: 02/04/24 16:56 Interval history: she is comfortable, family member at bedside Review of Systems Review of Systems: All systems reviewed & are unremarkable except as noted in HPI and below Exam Narrative: alert obese female smiles facial weakness nods for communication Const: General: comfortable HENMT: Other: facial asymmetry Eyes: Other: unable to track with pointing Neck: Neck: supple Resp: Effort & Inspection: normal respiratory effort Cardio: Rate: regular rate GI: GI Palp: Yes Soft to palpation and No Tenderness to palpation present (GI) Auscultation: normal bowel sounds : Other: defer Urinary Catheter: Urinary Catheter: other (no la) Skin: General skin exam: normal color Neuro: Other: h/o stroke Extrem: Other: edema right hand trace pedal Psych: Other: alert smiles nods yes no affect decreased yet at times smiles mood stable Objective Data Vital Signs Vital Signs: Vital Signs - 24 hr 02/03/24 20:45 02/03/24 20:00 02/04/24 04:55 Temperature 97.5 F L 97.4 F L Pulse Rate 80 69 Respiratory Rate 20 20 Blood Pressure 150/61 H 130/60 Pulse Oximetry 92 92 93 Oxygen Delivery Room Air 02/04/24 09:14 02/04/24 09:15 02/04/24 14:00 Temperature 98.1 F Pulse Rate 64 67 Respiratory Rate 14 Blood Pressure 128/74 Pulse Oximetry 100 Oxygen Delivery Room Air Intake/Output Intake/Output: Intake & Output 02/01/24 02/02/24 02/03/24 02/04/24 23:59 23:59 23:59 23:59 Intake Total [phone] [id number] Output Total 300 1250 750 900 Balance 773 -870 -376 102 Meds/Results Medications: Active Medications Generic Name Dose Route Start Last Admin Trade Name Freq PRN Reason Stop Dose Admin Acetaminophen 325 mg 02/01/24 09:17 Acetaminophen 325 Mg Tablet PO Q6H PRN Mild Pain (1-3) or Fever Amlodipine Besylate 10 mg 02/01/24 09:00 02/04/24 09:13 Amlodipine Besylate 10 Mg Tablet PO 10 mg DAILY ANDRESSA Administration Apixaban 5 mg 02/01/24 09:00 02/04/24 09:13 Apixaban 5 Mg Tablet PO 5 mg Q12HR ANDRESSA Administration Aspirin 81 mg 02/01/24 09:00 02/04/24 09:13 Aspirin 81 Mg Chewable Tablet PO 81 mg DAILY ANDRESSA Administration Carvedilol 25 mg 02/01/24 09:00 02/04/24 09:14 Carvedilol 25 Mg Tablet PO 25 mg Q12HR ANDRESSA Administration Gabapentin 300 mg 02/02/24 13:00 02/04/24 12:43 Gabapentin 300 Mg Capsule PO 300 mg TID ANDRESSA Administration Hydrochlorothiazide 25 mg 02/01/24 09:00 02/04/24 09:13 Hydrochlorothiazide 25 Mg Tablet PO 25 mg DAILY ANDRESSA Administration Levothyroxine Sodium 200 mcg 02/01/24 06:30 02/04/24 06:22 Levothyroxine Sodium 100 Mcg Tablet PO 200 mcg DAILY@0630 ANDRESSA Administration Mirtazapine 15 mg
== END 2024-02-04 16:25 | DRG 690 ==
LOC: ANHED 22:55 → ANH3MEDSUR 23:50
PROVIDERS: Admitting Provider Internal Medicine; Emergency Provider Emergency Medicine; Visit Provider Nurse Practitioner Acute Care
DX: N39.0 Urinary tract infection, site not specified (principal); I69.354 Hemiplegia and hemiparesis following cerebral infarction affecting left non-dominant side; E66.2 Morbid (severe) obesity with alveolar hypoventilation; Z68.35 Body mass index [BMI] 35.0-35.9, adult; B96.20 Unspecified Escherichia coli [E. coli] as the cause of diseases classified elsewhere; B96.1 Klebsiella pneumoniae [K. pneumoniae] as the cause of diseases classified elsewhere; R93.89 Abnormal findings on diagnostic imaging of other specified body structures; E78.5 Hyperlipidemia, unspecified; I10 Essential (primary) hypertension; K83.8 Other specified diseases of biliary tract; K59.03 Drug induced constipation; E86.0 Dehydration; E89.0 Postprocedural hypothyroidism; I69.320 Aphasia following cerebral infarction; Z11.52 Encounter for screening for COVID-19; Z86.718 Personal history of other venous thrombosis and embolism; Z79.01 Long term (current) use of anticoagulants; Z90.49 Acquired absence of other specified parts of digestive tract; Z87.891 Personal history of nicotine dependence
CPT/HCPCS: 36415; 72197; 74177; 76830; 80053; 81001; 82274; 83605; 83690; 83735; 85025; 87040; 87086; 87186; 87635; 96361; 96365; 96375; 96376; 97110; 97112; 97161; 97165; 97530; 97535; 99285; A9270; A9577; G0378; J0696; J1170; J7030; Q9967